=== PATIENT | female | born 1970 | race Caucasian/White ===

== ENCOUNTER 2022-06-17 13:12 | Inpatient (IN) | payer OTHER, MEDICAID, SELFPAY ==
[2022-06-17 13:58] VITALS: BMI 36.0
[2022-06-17 14:21] LABS: MANUAL DIFF FLAG NO
[2022-06-17 14:23] LABS: Basophils Absolute Auto 0.1 X10*3/uL (0.0-0.2); Eosinophils Absolute Auto 0.3 X10*3/uL (0.0-0.4); Eosinophils Percent Auto 4.9 % (0-4); Hematocrit 44.1 % (37.0-47.0); Imm Gran Abs Auto 0.02 X10*3/uL (0.00-0.03); Imm Gran Pct Auto 0.3 % (0.0-0.4); Mean Corpuscular Hemoglobin 29.9 pg (27.0-33.0); Mean Corpuscular Volume 87.8 fL (80.0-98.0); Mean Platelet Volume 9.6 fL (9.4-12.3); Monocytes Absolute Auto 0.4 X10*3/uL (0.1-1.2); Monocytes Percent Auto 6.3 % (2-11); Neutrophils Percent Auto 58.5 % (45-73); Platelet Count 338 X10*3/uL (160-400); Red Blood Count 5.02 X10*6/uL (4.20-5.50); Red Cell Distribution Width 14.2 % (11.0-16.0); White Blood Count 6.9 X10*3/uL (4.8-10.8)
[2022-06-17 14:37] LABS: Ethanol < 10 mg/dL
[2022-06-17 14:38] LABS: Alanine Aminotransferase 17 U/L (0-31); Albumin Level 4.3 g/dL (3.5-5.0); Alkaline Phosphatase 108 U/L (39-117); Anion Gap 14 (12-20); Aspartate Amino Transferase 16 U/L (5-31); Bilirubin Total 0.4 mg/dL (0.0-1.0); Blood Urea Nitrogen 10 mg/dL (9-16); COVID-19 Test Negative (Negative); Calcium 9.9 mg/dL (8.4-10.2); Carbon Dioxide 23 mmol/L (22-29); Chloride 105 mmol/L (96-108); Estimated Glomerular Filt Rate 58; Glucose Random 97 mg/dL (60-115); IDNOW Serial# 6674DD1D; Potassium 3.9 mmol/L (3.3-5.1); Sodium 138 mmol/L (135-145); Total Protein 7.7 g/dL (6.5-8.0)
[2022-06-17 14:39] LABS: Appearance Urine Clear; Color Urine Yellow; Glucose Urine UA Negative (Negative); Leukocyte Esterase Urine Negative (Negative); Nitrite Urine Negative (Negative); PH 6.5 (5.0-9.0); Specific Gravity - Urine <= 1.005 (1.005-1.025); UPreg QC Valid YES; Urine Blood Negative (Negative); Urine Ketones Negative (Negative); Urine Pregnancy NEGATIVE (NEGATIVE); Urine Protein Negative (Neg-Trace)
[2022-06-17 14:44] LABS: Amphetamine Screen Urine Not Detected (Not Detect); Barbiturates, Urine Not Detected (Not Detect); Benzodiazepines Screen Urine Not Detected (Not Detect); Cannabinoid Screen Urine Not Detected (Not Detect); Cocaine Screen Urine Not Detected (Not Detect); Fentanyl, urine Not Detected (Not Detect); Opiate Screen Urine Not Detected (Not Detect); Phencyclidine Screen Urine Not Detected (Not Detect)
--- NOTE | 2022-06-17 15:05 | ED.PSYCH ---
HPI - Psych General Chief Complaint: Psychiatric Symptoms Stated Complaint: SI W/PLAN, -HI, SEC 12 Time Seen by Provider: 06/17/22 13:47 Source: patient Mode of arrival: ambulatory Limitations: no limitations History of Present Illness HPI Narrative: Patient is a 51-year-old female who presents to the emergency department. She is coming from [place] in [place], with reports of suicidal ideations and a plan to overdose on pills. She reports that she moved to this area from [place] in October of 2021. Her prescriber from [place] had given her fluoxetine 40 mg daily, lorazepam which she is advised take daily at bedtime, but typically used as needed. Three days ago, 06/14/2021 she had thoughts of overdosing on her medications, she had locked herself in her room, but was able to talk herself down from this. Today she presented outpatient seeking help. She reports increased depression over the past month but has been significantly worsening over the past 2 weeks. She is currently residing with her daughter. 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 But she does feel as though she needs assistance at this time. Related Data Allergies Allergy/AdvReac Type Severity Reaction Status Date / Time Unable to Assess Allergy Verified 06/17/22 14:01 Review of Systems Review of Systems: Constitutional : No Fever, No Chills ENT/Mouth : No Ear Pain, No Nasal Congestion, No sore throat Eyes: No Eye Pain, No Swelling, No Redness Cardiovascular : No Chest Pain, No SOB Respiratory : No Cough, No Sputum, No Dyspnea Gastrointestinal : No Nausea, No Vomiting, No Diarrhea, No Hematochezia, No Melena Genitourinary : No Dysuria, No Urinary Frequency, No Hematuria Musculoskeletal : No Myalgias Skin : No Skin Lesions, No rash Neuro : No Weakness, No Numbness, No Paresthesias, No Dizziness, No Headache Psych : positive Anxiety, positive Depression, positive SI/HI Yes all other systems are reviewed and are negative [facility] Social History Social History Alcohol intake: current Alcohol intake frequency: holidays/special occasions only Smoked in Last 30 Days: No Use of substances other than those prescribed or required for medical reasons: No Advance Directives: No Advance Directives Information Provided: Yes Physical Exam Vital Signs: Vital Signs: Last Vital Signs Temp 97.2 F 06/17/22 17:35 Pulse 84 01/27/23 17:35 Resp 16 06/17/22 17:35 BP 155/95 H 06/17/22 17:35 Pulse Ox 95 06/17/22 17:35 O2 Del Method 06/17/22 17:35 BMI result Body Mass Index 36.0 Appearance: Alert.?Oriented to person, place and time. No acute distress.?Normal affect. Eyes: Pupils equal, round and reactive to light.? ENT: Pharynx normal.?? Neck: Normal inspection.? Neck supple.?? CVS: Heart sounds normal. Normal heart rate and rhythm.? Pulses normal.?? Respiratory: No respiratory distress.? Lung sounds clear to auscultation bilaterally?? Abdomen: Soft and non-tender. Normoactive bowel sounds. No pulsatile mass.?? Skin: Skin warm and dry.? Normal skin color.? Normal skin turgor.?? Extremities: No lower extremity edema.? No calf ttp? Neuro: Moves all extremities spontaneously. Sensation intact bilaterally. CN II-XII intact. No focal neuro deficits. Ambulates with normal steady gait. Course Reevaluation(s) Reevaluation #1: Patient responsive to lisinopril, repeat blood pressure 155/95 upon re-evaluation. EKG revealing normal sinus rhythm without any acute ischemic findings, troponin 4.0, at this time do not suspect ACS. Patient placed in physician observation. The reason for observation being that she requires additional time for inpatient bed search to ensue. She is calm and cooperative. No apparent distress. Time: 18:28 Medications Administered Discontinued Medications Generic Name Dose Route Start Last Admin Trade Name Emily PRN Reason Stop Dose Admin Lisinopril 5 mg 06/17/22 15:53 06/17/22 16:14 Lisinopril 5 Mg Tablet PO 06/17/22 15:54 5 mg ONCE ONE Administration Protocol Medical Decision Making Medical Decision Making MDM Narrative: She is noted to be hypertensive 179/120, currently asymptomatic without dizziness, headache, vision changes, neck pain, chest pain, shortness of breath. States that she was previously prescribed an antihypertensive medication, has not taken this since December of 2021, does not recall the name of what she was taking previously. Patient with asymptomatic hypertension, Will obtain CBC, CMP, troponin, EKG, drug of abuse screen, urinalysis. Will trial oral antihypertensive; lisinopril, for management at this time, and refer to care team. Admission/Observation Consideration of admission/observation: Escalation of care including admission/observation considered Lab Data MDM Lab Attestation statement: I reviewed the patient's lab results. 06/17/22 14:14 06/17/22 14:14 Labs: Lab Results 06/17/22 06/17/22 06/17/22 Range/Units 14:14 14:14 14:14 WBC 6.9 (4.8-10.8) X10*3/uL RBC 5.02 (4.20-5.50) X10*6/uL Hgb 15.0 (12.0-16.0) g/dl Hct 44.1 (37.0-47.0) % MCV 87.8 (80.0-98.0) fL MCH 29.9 (27.0-33.0) pg MCHC 34.0 (31.0-35.0) g/dl RDW 14.2 (11.0-16.0) % Plt Count 338 (160-400) X10*3/uL MPV 9.6 (9.4-12.3) fL Immature Gran % (Auto) 0.3 (0.0-0.4) % Neut % (Auto) 58.5 (45-73) % Lymph % (Auto) 29.0 (20-40) % [place] % (Auto) 6.3 (2-11) % Eos % (Auto) 4.9 H (0-4) % Baso % (Auto) 1.0 (0-2) % Lymph # (Auto) 2.0 (1.2-4.9) X10*3/uL [place] # (Auto) 0.4 (0.1-1.2) X10*3/uL Eos # (Auto) 0.3 (0.0-0.4) X10*3/uL Baso # (Auto) 0.1 (0.0-0.2) X10*3/uL Abs Immat Gran (auto) 0.02 (0.00-0.03) X10*3/uL Absolute Neuts (auto) 4.0 (2.0-8.3) x10*3/uL Absolute Nucleated RBC 0.000 (0.0-0.012) X10*3/uL Nucleated RBC % (auto) 0.0 (0.0-0.2) /100WBC Sodium 138 (135-145) mmol/L Potassium 3.9 (3.3-5.1) mmol/L Chloride 105 (96-108) mmol/L Carbon Dioxide 23 (22-29) mmol/L Anion Gap 14 (12-20) BUN 10 (9-16) mg/dL Creatinine 1.01 (0.5-1.4) mg/dL Estim Creat Clear Calc 70.0 Estimated GFR 58 Random Glucose 97 (60-115) mg/dL Calcium 9.9 (8.4-10.2) mg/dL Total Bilirubin 0.4 (0.0-1.0) mg/dL AST 16 (5-31) U/L ALT 17 (0-31) U/L Alkaline Phosphatase 108 (39-117) U/L Troponin I High Sens (<3.5-17.0) ng/L Total Protein 7.7 (6.5-8.0) g/dL Albumin 4.3 (3.5-5.0) g/dL Urine Color Urine Appearance Urine pH (5.0-9.0) Ur Specific [place] (1.005-1.025) Urine Protein (Neg-Trace) mg/dL Urine Glucose (UA) (Negative) mg/dL Urine Ketones (Negative) mg/dL Urine Blood (Negative) Urine Nitrite (Negative) Ur Leukocyte Esterase (Negative) Urine Test (NEGATIVE) Urine Opiates Screen (Not Detect) Urine Fentanyl Screen (Not Detect) Ur Barbiturates Screen (Not Detect) Ur Phencyclidine Scrn (Not Detect) Ur Amphetamines Screen (Not Detect) U Benzodiazepines Scrn (Not Detect) Urine Cocaine Screen (Not Detect) U Marijuana (THC) Screen (Not Detect) Ethyl Alcohol mg/dL COVID-19 (JESSICA) Negative (Negative) COVID-19 Clin Com See Note 06/17/22 06/17/22 06/17/22 Range/Units 14:14 14:27 14:27 WBC (4.8-10.8) X10*3/uL RBC (4.20-5.50) X10*6/uL Hgb (12.0-16.0) g/dl Hct (37.0-47.0) % MCV (80.0-98.0) fL MCH (27.0-33.0) pg MCHC (31.0-35.0) g/dl RDW (11.0-16.0) % Plt Count (160-400) X10*3/uL MPV (9.4-12.3) fL Immature Gran % (Auto) (0.0-0.4) % Neut % (Auto) (45-73) % Lymph % (Auto) (20-40) % [place] % (Auto) (2-11) % Eos % (Auto) (0-4) % Baso % (Auto) (0-2) % Lymph # (Auto) (1.2-4.9) X10*3/uL [place] # (Auto) (0.1-1.2) X10*3/uL Eos # (Auto) (0.0-0.4) X10*3/uL Baso # (Auto) (0.0-0.2) X10*3/uL Abs Immat Gran (auto) (0.00-0.03) X10*3/uL Absolute Neuts (auto) (2.0-8.3) x10*3/uL Absolute Nucleated RBC (0.0-0.012) X10*3/uL Nucleated RBC % (auto) (0.0-0.2) /100WBC Sodium (135-145) mmol/L Potassium (3.3-5.1) mmol/L Chloride (96-108) mmol/L Carbon Dioxide (22-29) mmol/L Anion Gap (12-20) BUN (9-16) mg/dL Creatinine (0.5-1.4) mg/dL Estim Creat Clear Calc Estimated GFR Random Glucose (60-115) mg/dL Calcium (8.4-10.2) mg/dL Total Bilirubin (0.0-1.0) mg/dL AST (5-31) U/L ALT (0-31) U/L Alkaline Phosphatase (39-117) U/L Troponin I High Sens (<3.5-17.0) ng/L Total Protein (6.5-8.0) g/dL Albumin (3.5-5.0) g/dL Urine Color Yellow Urine Appearance Clear Urine pH 6.5 (5.0-9.0) Ur Specific [place] <= 1.005 (1.005-1.025) Urine Protein Negative (Neg-Trace) mg/dL Urine Glucose (UA) Negative (Negative) mg/dL Urine Ketones Negative (Negative) mg/dL Urine Blood Negative (Negative) Urine Nitrite Negative (Negative) Ur Leukocyte Esterase Negative (Negative) Urine Test NEGATIVE (NEGATIVE) Urine Opiates Screen (Not Detect) Urine Fentanyl Screen (Not Detect) Ur Barbiturates Screen (Not Detect) Ur Phencyclidine Scrn (Not Detect) Ur Amphetamines Screen (Not Detect) U Benzodiazepines Scrn (Not Detect) Urine Cocaine Screen (Not Detect) U Marijuana (THC) Screen (Not Detect) Ethyl Alcohol < 10 mg/dL COVID-19 (JESSICA) (Negative) COVID-19 Clin Com 06/17/22 06/17/22 Range/Units 14:27 15:56 WBC (4.8-10.8) X10*3/uL RBC (4.20-5.50) X10*6/uL Hgb (12.0-16.0) g/dl Hct (37.0-47.0) % MCV (80.0-98.0) fL MCH (27.0-33.0) pg MCHC (31.0-35.0) g/dl RDW (11.0-16.0) % Plt Count (160-400) X10*3/uL MPV (9.4-12.3) fL Immature Gran % (Auto) (0.0-0.4) % Neut % (Auto) (45-73) % Lymph % (Auto) (20-40) % [place] % (Auto) (2-11) % Eos % (Auto) (0-4) % Baso % (Auto) (0-2) % Lymph # (Auto) (1.2-4.9) X10*3/uL [place] # (Auto) (0.1-1.2) X10*3/uL Eos # (Auto) (0.0-0.4) X10*3/uL Baso # (Auto) (0.0-0.2) X10*3/uL Abs Immat Gran (auto) (0.00-0.03) X10*3/uL Absolute Neuts (auto) (2.0-8.3) x10*3/uL Absolute Nucleated RBC (0.0-0.012) X10*3/uL Nucleated RBC % (auto) (0.0-0.2) /100WBC Sodium (135-145) mmol/L Potassium (3.3-5.1) mmol/L Chloride (96-108) mmol/L Carbon Dioxide (22-29) mmol/L Anion Gap (12-20) BUN (9-16) mg/dL Creatinine (0.5-1.4) mg/dL Estim Creat Clear Calc Estimated GFR Random Glucose (60-115) mg/dL Calcium (8.4-10.2) mg/dL Total Bilirubin (0.0-1.0) mg/dL AST (5-31) U/L ALT (0-31) U/L Alkaline Phosphatase (39-117) U/L Troponin I High Sens 4.0 (<3.5-17.0) ng/L Total Protein (6.5-8.0) g/dL Albumin (3.5-5.0) g/dL Urine Color Urine Appearance Urine pH (5.0-9.0) Ur Specific [place] (1.005-1.025) Urine Protein (Neg-Trace) mg/dL Urine Glucose (UA) (Negative) mg/dL Urine Ketones (Negative) mg/dL Urine Blood (Negative) Urine Nitrite (Negative) Ur Leukocyte Esterase (Negative) Urine Test (NEGATIVE) Urine Opiates Screen Not Detected (Not Detect) Urine Fentanyl Screen Not Detected (Not Detect) Ur Barbiturates Screen Not Detected (Not Detect) Ur Phencyclidine Scrn Not Detected (Not Detect) Ur Amphetamines Screen Not Detected (Not Detect) U Benzodiazepines Scrn Not Detected (Not Detect) Urine Cocaine Screen Not Detected (Not Detect) U Marijuana (THC) Screen Not Detected (Not Detect) Ethyl Alcohol mg/dL COVID-19 (JESSICA) (Negative) COVID-19 Clin Com Independent Interpretation I performed an independent interpretation of an: EKG Interpretation: Rate: Normal sinus rhythm Rhythm:? [address] [place]:? Normal Normal P waves.? Normal LAURA.?? Normal QRS complex.?? ST T wave :??No ST elevation, no ST depression, no T-wave inversion qTC: 476 prior studies:? None prior available for review The study has been interpreted contemporaneously by me. Chronic Conditions Patient?s care impacted by: Hypertension Discharge Plan Discharge Clinical Impression: Suicidal ideation, Essential hypertension Patient Disposition: Still a Patient Interventions: [place]-Suicide Risk Severity Scale Last Done: 06/17/22 14:07
[2022-06-17 15:13] VITALS: BP 179/120; PULSE 89; RESP 15; TEMP 36.3; O2SAT 95
--- NOTE | 2022-06-17 15:19 | ECG_ITS ---
Test Reason : HTN Blood Pressure : / mmHG Vent. Rate : 078 BPM Atrial Rate : 078 BPM P-R Int : 164 ms QRS Dur : 082 ms QT Int : 418 ms P-R-T Axes : 060 045 074 degrees QTc Int : 476 ms Normal sinus rhythm Normal ECG No previous ECGs available Referred By: Allison Azul Electronically Signed By:RHONDA VO
[2022-06-17] MEDS: lisinopriL 5 MG TABLET PO (16:14)
[2022-06-17 17:35] VITALS: BP 155/95; PULSE 84; RESP 16; TEMP 36.2; O2SAT 95
[2022-06-17 22:35] VITALS: BP 139/94; PULSE 88; RESP 18; TEMP 36.6; O2SAT 96
[2022-06-17] MEDS: Propranolol HCL 40 MG TABLET PO (23:08)
[2022-06-17] MEDS: SUMAtriptan succinate 50 MG TABLET PO (23:08)
[2022-06-17] MEDS: LORazepam 1 MG TABLET PO (23:09)
[2022-06-18 00:15] VITALS: BP 174/103; PULSE 80; RESP 16; TEMP 36.3; O2SAT 94
[2022-06-18 01:00] VITALS: BP 170/104; PULSE 74; RESP 16; O2SAT 94
[2022-06-18] MEDS: Acetaminophen 325 MG TABLET 650 MG PO ×2 (01:07→11:18)
[2022-06-18] MEDS: traZODone HCL 50 MG TABLET PO ×2 (01:33→22:55)
[2022-06-18] MEDS: Magnesium Hydrox/Alum Hydrox 30 ML ORAL.SUSP PO ×2 (01:33→20:41)
--- NOTE | 2022-06-18 03:03 | PC.ADMIT ---
Pt is a 51 year old cisgender Austrian speaking female who presented to [facility] secondary to being assessed in the community by [facility] secondary to increased SI with plan, means and intent. Pt reported that on 06/14/22 she barricaded herself in the bathroom and planned to end her life via intentional OD on prescription medications. Pt reported that she has been experiencing command auditory hallucinations to harm herself and visual hallucinations of the devil?s face. Pt moved from [place] to [place] in October of 2021 to be closer to her family supports. Pt reported feeling paranoid about people that are out to get her though the people in question do not know her and she does not know them.?On arrival to unit patient reports anxiety 5/10 with depression 5/10. Patient continues to endorse SI, but has no plan in place on the unit. Patient continues to intermittently see the devil and hear statements that she should harm herself. Patient was pleasant and cooperative with admission process. Covid Negative. UTOX negative
[2022-06-18 07:38] LABS: Alanine Aminotransferase 18 U/L (0-31); Albumin Level 3.9 g/dL (3.5-5.0); Alkaline Phosphatase 102 U/L (39-117); Anion Gap 13 (12-20); Aspartate Amino Transferase 16 U/L (5-31); Bilirubin Total 0.6 mg/dL (0.0-1.0); Blood Urea Nitrogen 10 mg/dL (9-16); Calcium 9.8 mg/dL (8.4-10.2); Carbon Dioxide 24 mmol/L (22-29); Chloride 107 mmol/L (96-108); Cholesterol 260 mg/dL; Creatinine Clr Calc Pharmacy 65.5; Estimated Glomerular Filt Rate 54; Glucose Fasting 98 mg/dL (60-99); HDL Cholesterol 44 mg/dL; LDL Cholesterol Calculated 198 mg/dl; Sodium 140 mmol/L (135-145); Triglycerides 90 mg/dL
[2022-06-18 08:35] VITALS: BP 136/80; PULSE 68; RESP 18; TEMP 36.6; O2SAT 96
[2022-06-18] MEDS: Atorvastatin Calcium 10 MG TABLET PO (08:49)
[2022-06-18] MEDS: FLUoxetine HCl 20 MG CAPSULE 40 MG PO (08:49)
[2022-06-18] MEDS: Propranolol HCL 40 MG TABLET PO ×2 (08:49→20:40)
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
[2022-06-18] MEDS: ARIPiprazole 2 MG TABLET PO (14:53)
[2022-06-18] MEDS: LORazepam 1 MG TABLET PO (14:53)
[2022-06-18 16:06] LABS: TSH reflex Free T4 1.54 uIU/mL (0.32-4.0)
[2022-06-18 16:20] LABS: Folate 10.1 ng/mL (> or = 4.0); Vitamin B12 256 pg/mL (200-900)
[2022-06-18 20:40] VITALS: BP 136/77; PULSE 68; RESP 16; TEMP 36.5; O2SAT 94
[2022-06-18] MEDS: Cyclobenzaprine HCl 10 MG TABLET PO (20:40)
[2022-06-18] MEDS: traMADoL HCL 50 MG TABLET PO (20:41)
[2022-06-19 08:54] VITALS: BP 112/73; PULSE 71; RESP 18; TEMP 36.6; O2SAT 94
[2022-06-19] MEDS: LORazepam 1 MG TABLET PO ×2 (08:56→15:51)
[2022-06-19] MEDS: Atorvastatin Calcium 10 MG TABLET PO (08:56)
[2022-06-19] MEDS: ARIPiprazole 5 MG TABLET PO (08:56)
[2022-06-19] MEDS: Propranolol HCL 40 MG TABLET PO ×2 (08:56→22:53)
[2022-06-19] MEDS: FLUoxetine HCl 20 MG CAPSULE 40 MG PO (08:56)
[2022-06-19] MEDS: Acetaminophen 325 MG TABLET 650 MG PO (08:56)
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
[2022-06-19] MEDS: Topiramate 25 MG TABLET PO ×2 (12:17→22:49)
[2022-06-19] MEDS: Celecoxib 100 MG CAPSULE PO ×2 (13:59→22:53)
[2022-06-19] MEDS: traMADoL HCL 50 MG TABLET PO (15:51)
[2022-06-19 18:00] VITALS: BP 117/62; PULSE 77; RESP 16; TEMP 36.4; O2SAT 93
[2022-06-20] MEDS: traMADoL HCL 50 MG TABLET PO ×2 (01:45→20:27)
[2022-06-20] MEDS: Celecoxib 100 MG CAPSULE PO ×2 (09:52→20:27)
[2022-06-20] MEDS: Topiramate 25 MG TABLET 50 MG PO ×2 (09:53→20:27)
[2022-06-20] MEDS: ARIPiprazole 5 MG TABLET PO (09:53)
[2022-06-20] MEDS: Atorvastatin Calcium 10 MG TABLET PO (09:53)
[2022-06-20] MEDS: Propranolol HCL 40 MG TABLET PO ×2 (09:53→20:27)
[2022-06-20] MEDS: FLUoxetine HCl 20 MG CAPSULE 40 MG PO (09:54)
[2022-06-20] MEDS: Acetaminophen 325 MG TABLET 650 MG PO (09:57)
[2022-06-20] MEDS: LORazepam 1 MG TABLET PO ×2 (09:59→20:27)
[2022-06-20 10:01] VITALS: BP 118/78; PULSE 73; RESP 18; TEMP 36.3; O2SAT 95
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
[2022-06-20] MEDS: Magnesium Hydrox/Alum Hydrox 30 ML ORAL.SUSP PO (15:29)
[2022-06-20 20:05] VITALS: BP 168/74; PULSE 84; RESP 16; TEMP 36.5; O2SAT 96
[2022-06-20] MEDS: Cyclobenzaprine HCl 10 MG TABLET PO (20:28)
[2022-06-20] MEDS: traZODone HCL 50 MG TABLET PO (20:30)
[2022-06-21] MEDS: FLUoxetine HCl 20 MG CAPSULE 40 MG PO (09:39)
[2022-06-21] MEDS: Topiramate 25 MG TABLET 50 MG PO ×2 (09:39→21:05)
[2022-06-21] MEDS: Cyclobenzaprine HCl 10 MG TABLET PO ×3 (09:40→21:06)
[2022-06-21] MEDS: traMADoL HCL 50 MG TABLET PO ×2 (09:40→21:06)
[2022-06-21] MEDS: Atorvastatin Calcium 10 MG TABLET PO (09:40)
[2022-06-21] MEDS: LORazepam 1 MG TABLET PO ×3 (09:40→21:06)
[2022-06-21] MEDS: Celecoxib 100 MG CAPSULE PO ×2 (09:40→21:05)
[2022-06-21] MEDS: Propranolol HCL 40 MG TABLET PO ×2 (09:40→21:05)
[2022-06-21] MEDS: ARIPiprazole 5 MG TABLET PO (09:40)
[2022-06-21 09:46] VITALS: BP 139/82; PULSE 70; RESP 18; TEMP 36.2; O2SAT 96
[2022-06-21] MEDS: Magnesium Hydrox/Alum Hydrox 30 ML ORAL.SUSP PO ×2 (10:34→20:02)
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
[2022-06-21] MEDS: Acetaminophen 325 MG TABLET 650 MG PO (14:55)
[2022-06-21 20:00] VITALS: BP 139/77; PULSE 88; RESP 18; TEMP 36.6; O2SAT 95
[2022-06-21] MEDS: traZODone HCL 50 MG TABLET PO (21:05)
[2022-06-22] MEDS: Propranolol HCL 40 MG TABLET PO ×2 (08:48→20:33)
[2022-06-22] MEDS: Celecoxib 100 MG CAPSULE PO ×2 (08:49→20:33)
[2022-06-22] MEDS: Topiramate 25 MG TABLET 50 MG PO ×2 (08:49→20:33)
[2022-06-22] MEDS: FLUoxetine HCl 20 MG CAPSULE 40 MG PO (08:49)
[2022-06-22] MEDS: LORazepam 1 MG TABLET PO (08:49)
[2022-06-22] MEDS: ARIPiprazole 5 MG TABLET PO (08:49)
[2022-06-22] MEDS: Atorvastatin Calcium 10 MG TABLET PO (08:49)
[2022-06-22 09:24] VITALS: BP 132/75; PULSE 73; RESP 16; TEMP 36.6; O2SAT 94
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
[2022-06-22] MEDS: Acetaminophen 325 MG TABLET 650 MG PO (13:40)
[2022-06-22] MEDS: Magnesium Hydrox/Alum Hydrox 30 ML ORAL.SUSP PO ×2 (14:41→20:38)
[2022-06-22 20:26] VITALS: BP 140/89; PULSE 81; TEMP 36.4; O2SAT 94
[2022-06-22] MEDS: traMADoL HCL 50 MG TABLET PO (20:31)
[2022-06-22] MEDS: Cyclobenzaprine HCl 10 MG TABLET PO (20:32)
[2022-06-22] MEDS: traZODone HCL 50 MG TABLET PO (20:33)
[2022-06-22] MEDS: Fluticasone Propionate Nasal 16 GM SPRAY 1 SPRAY NOSTRIL-B (21:29)
[2022-06-23] MEDS: traZODone HCL 50 MG TABLET PO ×2 (02:11→21:38)
[2022-06-23 07:00] VITALS: BMI 38.1
[2022-06-23] MEDS: Atorvastatin Calcium 10 MG TABLET PO (08:21)
[2022-06-23] MEDS: Topiramate 25 MG TABLET 50 MG PO ×2 (08:21→21:38)
[2022-06-23] MEDS: Propranolol HCL 40 MG TABLET PO ×2 (08:21→21:39)
[2022-06-23] MEDS: ARIPiprazole 5 MG TABLET PO (08:21)
[2022-06-23] MEDS: FLUoxetine HCl 20 MG CAPSULE 40 MG PO (08:21)
[2022-06-23] MEDS: Celecoxib 100 MG CAPSULE PO ×2 (08:21→21:38)
[2022-06-23] MEDS: Acetaminophen 325 MG TABLET 650 MG PO (09:37)
[2022-06-23] MEDS: LORazepam 1 MG TABLET PO (09:38)
[2022-06-23 09:54] VITALS: BP 126/63; PULSE 86; RESP 16; TEMP 36.3; O2SAT 95
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
[2022-06-23] MEDS: traMADoL HCL 50 MG TABLET PO ×2 (14:49→21:38)
[2022-06-23] MEDS: Fluticasone Propionate Nasal 16 GM SPRAY 1 SPRAY NOSTRIL-B (21:36)
[2022-06-23] MEDS: Magnesium Hydrox/Alum Hydrox 30 ML ORAL.SUSP PO (21:37)
[2022-06-23] MEDS: Cyclobenzaprine HCl 10 MG TABLET PO (21:39)
[2022-06-23 21:43] VITALS: BP 133/84; PULSE 79; TEMP 36.7; O2SAT 95
[2022-06-24 08:00] VITALS: BP 156/89; PULSE 74; TEMP 36.2; O2SAT 96
[2022-06-24] MEDS: traMADoL HCL 50 MG TABLET PO ×2 (09:32→21:48)
[2022-06-24] MEDS: Atorvastatin Calcium 10 MG TABLET PO (09:32)
[2022-06-24] MEDS: Propranolol HCL 40 MG TABLET PO ×2 (09:33→21:47)
[2022-06-24] MEDS: ARIPiprazole 5 MG TABLET PO (09:33)
[2022-06-24] MEDS: Cyclobenzaprine HCl 10 MG TABLET PO ×2 (09:33→21:47)
[2022-06-24] MEDS: Celecoxib 100 MG CAPSULE PO ×2 (09:33→21:47)
[2022-06-24] MEDS: FLUoxetine HCl 20 MG CAPSULE 40 MG PO (09:33)
[2022-06-24] MEDS: LORazepam 1 MG TABLET PO ×2 (09:33→21:47)
[2022-06-24] MEDS: Topiramate 25 MG TABLET 50 MG PO ×2 (09:34→21:47)
[2022-06-24] MEDS: Omeprazole 20 MG CAPSULE.DR PO (12:35)
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
[2022-06-24] MEDS: Albuterol Sulfate 90 MCG 8 GM INHALER 2 PUFF INHALE (17:16)
[2022-06-24 21:35] VITALS: BP 140/86; PULSE 81; RESP 16; TEMP 36.2; O2SAT 95
[2022-06-24] MEDS: traZODone HCL 50 MG TABLET PO (21:51)
[2022-06-25 06:00] VITALS: BP 138/82; PULSE 82; RESP 16; TEMP 36.6; O2SAT 99
[2022-06-25] MEDS: Omeprazole 20 MG CAPSULE.DR PO (08:52)
[2022-06-25] MEDS: Topiramate 25 MG TABLET 50 MG PO ×2 (08:52→21:40)
[2022-06-25] MEDS: FLUoxetine HCl 20 MG CAPSULE 40 MG PO (08:52)
[2022-06-25] MEDS: ARIPiprazole 5 MG TABLET PO (08:52)
[2022-06-25] MEDS: Propranolol HCL 40 MG TABLET PO ×2 (08:53→21:40)
[2022-06-25] MEDS: Atorvastatin Calcium 10 MG TABLET PO (08:53)
[2022-06-25] MEDS: Celecoxib 100 MG CAPSULE PO ×2 (08:53→21:40)
[2022-06-25] MEDS: LORazepam 1 MG TABLET PO ×2 (08:57→21:40)
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
[2022-06-25 17:05] LABS: Appearance Urine Clear; Color Urine Yellow; Glucose Urine UA Negative (Negative); Leukocyte Esterase Urine Negative (Negative); Nitrite Urine Negative (Negative); Urine Blood Negative (Negative); Urine Ketones Negative (Negative); Urine Protein Negative (Neg-Trace)
[2022-06-25 17:08] LABS: Bacteria Urine None Seen (None Seen); Hyaline Casts Urine 0-2 /LPF (0-2); RBC Urine 0-2 /HPF (0-2); Squamous Epithelial Cell Urine 0-2 /HPF (0-2); WBC Urine 0-5 /HPF (0-5)
[2022-06-25 21:30] VITALS: BP 148/96; PULSE 80; RESP 16; O2SAT 95
[2022-06-25] MEDS: traZODone HCL 50 MG TABLET PO (21:40)
[2022-06-25] MEDS: traMADoL HCL 50 MG TABLET PO (21:40)
[2022-06-25] MEDS: Cyclobenzaprine HCl 10 MG TABLET PO (21:40)
[2022-06-26] MEDS: traZODone HCL 50 MG TABLET PO ×2 (02:07→21:39)
[2022-06-26 06:00] VITALS: BP 162/86; PULSE 72; RESP 16; TEMP 36.6; O2SAT 98
[2022-06-26] MEDS: Propranolol HCL 40 MG TABLET PO ×2 (08:54→21:39)
[2022-06-26] MEDS: FLUoxetine HCl 20 MG CAPSULE 40 MG PO (08:54)
[2022-06-26] MEDS: Topiramate 25 MG TABLET 50 MG PO ×2 (08:54→21:39)
[2022-06-26] MEDS: Atorvastatin Calcium 10 MG TABLET PO (08:54)
[2022-06-26] MEDS: Celecoxib 100 MG CAPSULE PO ×2 (08:54→21:40)
[2022-06-26] MEDS: Omeprazole 20 MG CAPSULE.DR PO (08:54)
[2022-06-26] MEDS: LORazepam 1 MG TABLET PO ×2 (08:55→20:13)
[2022-06-26] MEDS: ARIPiprazole 5 MG TABLET PO (08:55)
[2022-06-26] MEDS: Albuterol Sulfate 90 MCG 8 GM INHALER 2 PUFF INHALE (13:16)
[2022-06-26] MEDS: Acetaminophen 325 MG TABLET 650 MG PO (13:16)
[2022-06-26] MEDS: Fluticasone Propionate Nasal 16 GM SPRAY 1 SPRAY NOSTRIL-B (13:16)
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
[2022-06-26 20:21] VITALS: BP 143/83; PULSE 82; RESP 16; TEMP 36.7; O2SAT 96
[2022-06-26] MEDS: Cyclobenzaprine HCl 10 MG TABLET PO (21:39)
[2022-06-26] MEDS: traMADoL HCL 50 MG TABLET PO (21:39)
[2022-06-27] MEDS: traZODone HCL 50 MG TABLET PO ×2 (01:57→21:31)
[2022-06-27 08:00] VITALS: BP 144/81; PULSE 76; TEMP 36.4; O2SAT 95
[2022-06-27] MEDS: Topiramate 25 MG TABLET 50 MG PO ×2 (08:40→21:31)
[2022-06-27] MEDS: Propranolol HCL 40 MG TABLET PO ×2 (08:41→21:31)
[2022-06-27] MEDS: Atorvastatin Calcium 10 MG TABLET PO (08:41)
[2022-06-27] MEDS: Celecoxib 100 MG CAPSULE PO ×2 (08:41→21:31)
[2022-06-27] MEDS: FLUoxetine HCl 20 MG CAPSULE 40 MG PO (08:42)
[2022-06-27] MEDS: ARIPiprazole 5 MG TABLET PO (08:42)
[2022-06-27] MEDS: Omeprazole 20 MG CAPSULE.DR PO (08:42)
[2022-06-27] MEDS: traMADoL HCL 50 MG TABLET PO ×2 (08:48→21:31)
[2022-06-27] MEDS: LORazepam 1 MG TABLET PO ×2 (08:48→20:46)
[2022-06-27] MEDS: Fluticasone Propionate Nasal 16 GM SPRAY 1 SPRAY NOSTRIL-B (12:06)
[2022-06-27] MEDS: Albuterol Sulfate 90 MCG 8 GM INHALER 2 PUFF INHALE (12:06)
[2022-06-27] MEDS: ARIPiprazole 2 MG TABLET PO (13:42)
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
[2022-06-27 20:15] VITALS: BP 155/85; PULSE 80; RESP 16; TEMP 36.4; O2SAT 97
[2022-06-27] MEDS: Cyclobenzaprine HCl 10 MG TABLET PO (21:31)
[2022-06-28 06:00] VITALS: BP 125/70; PULSE 72; RESP 18; TEMP 36.3; O2SAT 95
[2022-06-28] MEDS: Topiramate 25 MG TABLET 50 MG PO (09:12)
[2022-06-28] MEDS: Omeprazole 20 MG CAPSULE.DR PO (09:13)
[2022-06-28] MEDS: ARIPiprazole 2 MG TABLET PO (09:13)
[2022-06-28] MEDS: Atorvastatin Calcium 10 MG TABLET PO (09:13)
[2022-06-28] MEDS: FLUoxetine HCl 20 MG CAPSULE 40 MG PO (09:13)
[2022-06-28] MEDS: ARIPiprazole 5 MG TABLET PO (09:13)
[2022-06-28] MEDS: Celecoxib 100 MG CAPSULE PO (09:13)
[2022-06-28] MEDS: Propranolol HCL 40 MG TABLET PO (09:13)
[2022-06-28] MEDS: Cyclobenzaprine HCl 10 MG TABLET PO (09:48)
[2022-06-28] MEDS: LORazepam 1 MG TABLET PO (09:49)
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
--- NOTE | 2022-06-28 14:53 | PC.NURSE ---
Patient easily engaged. Reports mood is stable, depression and anxiety rated a 4. Denies SI/HI plan or intent. Denies thoughts to self harm. Denies perceptual disturbances, no overt psychosis or expressed delusions. States she is ready for discharge. Planning to go to [facility] apartment following discharge.. Discharge paperwork reviewed, reported understanding. Appointments reviewed with patient, reports understanding. All belongings taken with patient. Crisis numbers provided to client.
== END 2022-06-28 14:17 | disposition home or self-care (01) | DRG 751 ==
LOC: HO.ED 18:31 → HO.PADLT16 23:51
PROVIDERS: Nurse Practitioner Family; Psychiatry & Neurology Psychiatry; Admitting Provider Psychiatry & Neurology Psychiatry; Emergency Provider Student in an Organized Health Care Education/Training Program; Visit Provider Psychiatry & Neurology Psychiatry
DX: F33.1 Major depressive disorder, recurrent, moderate (principal); R45.851 Suicidal ideations; I10 Essential (primary) hypertension; Z20.822 Contact with and (suspected) exposure to COVID-19; Z23 Encounter for immunization; Z62.810 Personal history of physical and sexual abuse in childhood; Z79.51 Long term (current) use of inhaled steroids; Z88.0 Allergy status to penicillin; Z88.8 Allergy status to other drugs, medicaments and biological substances; Z79.899 Other long term (current) drug therapy
CPT/HCPCS: 36415; 80053; 80061; 80307; 81001; 81003; 81025; 82077; 82607; 82746; 84443; 84484; 85025; 87635; 90686; 93005; 99285

== ENCOUNTER 2025-03-12 11:50 | Outpatient (AMB) | payer MEDICAID, SELFPAY ==
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
== END 2025-03-12 12:36 | disposition home or self-care (01) ==
LOC: HO.HSM 11:51
PROVIDERS: Visit Provider Psychiatry & Neurology Neurology
DX: G20.A1 Parkinson's disease without dyskinesia, without mention of fluctuations (principal)
CPT/HCPCS: 99204

== ENCOUNTER → 2025-03-12 11:50 | Outpatient (BNVA) | payer OTHER, SELFPAY | PROVIDERS: Visit Provider Psychiatry & Neurology Neurology | DX: M54.2 Cervicalgia (principal); G20.C Parkinsonism, unspecified; F32.A Depression, unspecified | CPT/HCPCS: 99202 ==

== ENCOUNTER 2025-04-12 14:55 | Outpatient (REF) | payer MEDICAID, SELFPAY ==
--- NOTE | ~2025-04-12 | MR_ITS ---
CLINICAL HISTORY: G20 - Parkinsons disease MR Brain without gadolinium Comparison: None provided Findings: No restricted diffusion. No intra-axial mass or hemorrhage. No midline shift. No hydrocephalus. Vascular flow voids are intact. The orbits are normal. The sinuses and mastoid air cells are clear. No focal bone lesion. IMPRESSION: Normal brain MRI. This document has been electronically signed by: Jesu Fleming MD on 04/14/2025 12:36:51
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
--- OUTSIDE RECORDS SUMMARY | 2025-04-12 14:58 | XMS_ITS | Encounter Summary ---
Author Organization [employer] [facility] Address [address] [place] [address] [address] [address] Care Team Providers Care Environmental Engineer Name Role Phone Rena Rothman NP Primary Care Provider Unavailabl e Kali Mchugh Unavailable Unavailable Kali Mchugh Unavailable Unavailable Lolis Sidhu DO Primary Care Provider [phone] PcpSony Unassigned Primary Care Provider U navailable Reason for Visit * Reason Comments Med Change Request Encounter Details Date Type Department Care Team (Late st Contact Info) Description 01/30/2023 Refill [facility] MEDICAL [address] [place] [address] Rena Rothman NP Cervicalgia Social History Tobacco Use Types Packs/Day Years Used Date Smoking Tobacco: Never Smokeless Tobacco: Never Alcohol Use Standard Drinks/Week Comments Not Currently 0 (1 standard drink = 0.6 oz pur e alcohol) Comments Unknown Sex and Gender Information Value Date Recorded Sex Assigned at Female 11/29/2022 10:11 AM EDT Legal Sex Female 10:07 AM EDT Gender Identity Female 11/29/2022 10:11 AM EDT Sexual Orientation Straight 11/29/2022 10 :11 AM EDT documented as of this encounter Plan of Treatment Upcoming Encounters Date Type Department Care Team (Late st Contact Info) Description 05/23/2025 11:15 AM EST Office Visit [facility] MEDICAL [address] [place] [address] Marion Casanova DO [address] [place] [address] 01/28/2026 11:00 AM EDT Office Visit [facility] OPT[facility] [address] [place] [address] Juliana Carolee, OD [address] [place] [address] documented as of this encounter Visit Diagnoses Diagnosis Cervicalgia documented in this encounter Care Teams Environmental Engineer Relationship Specialty Start Date End Date Rena Rothman NP PCP - General Family Medicine 12/29/22 03/09/25 Lolis Sidhu DO [address] [place] [address] PCP - General Inhalation Therapist 03/10/25 03/16/25 Sony Jimenez Unassigned PCP - General Family Medicine 03/17/25 Kali Mchugh 03/31/23 03/31/23 Kali Mchugh Community Health Worker 03/31/23 Joselin Moser [address] [phone] Therapist Behavioral Health 02/13/25 Caitlyn Caceres [address] [place] [phone] Psychiatrist Psychiatry 02/13/25 documented as of this encounter
--- OUTSIDE RECORDS SUMMARY | 2025-04-12 14:58 | XMS_ITS | Encounter Summary ---
Author Organization [employer] Address [address] [place] [address] 7 [place] [address] Care Team Providers Care Plodding Machine Operator Name Role Phone Rena Rothman NP Primary Care Provider Kali [place] Unavailable Unavailable Lolis Sidhu DO Primary Care Provider [phone] PcpSony Unassigned Primary Care Provider U navailable Reason for Visit * Reason Onset Date Comments Paperwork/Forms 11/30/2024 Encounter Details Date Type Department Care Team (Late st Contact Info) Description 11/30/2024 Telephone [facility] MEDICAL [address] [place] [phone] Rena Rothman NP Paperwork/Forms Social History Tobacco Use Types Packs/Day Years Used Date Smoking Tobacco: Never Passive Smoke Exposure: Never Smokeless Tobacco: Never Alcohol Use Standard Drinks/Week Comments Never 0 (1 standard drink = 0.6 oz pur e alcohol) Alcohol Answer Date Recorded How often do you have a drink containing alcohol ? 0 08/12/2024 How many drinks containing a lcohol do you have on a typical day when you are drinking? 0 08/12/2024 How often do you have six or more drinks on one occasion? 0 08/12/2024 Depression Answer Date Recorded Patient Health Questionnaire-9 Score 0 04/19/2023 Patient Health Questionnaire-9 Score 0 04/19/2023 Last PHQ-9: Questionnaire Data Not on file 1 06/19/2022 Housing Stability Answer Date Recorded What is your housing situation today? I have malina ovalles 08/12/[address] you li ve. Do you have problems with any of the following? None of the above 08/12/2024 Food Insecurity Answer Date Recorded Within the past 12 months, y ou worried that your food would run out before you got money to buy more: Never True 08/12/2024 Within the past 12 months,th e food you bought just didn't last and you didn't have enough money to get more: Never True Transportation Answer Date Recorded In the past 12 months, has l ack of transportation kept you from medical appts, meetings, work or from getting things needed for daily living? No 08/12/2024 Intimate Partner Violence Answer Date R ecorded [...] shut off services in your home? No 08/12/2024 Depression Answer Date Recorded Patient Health Questionnaire-2 Score 0 08/12/2024 Internet Access Answer Date Recorded Internet Access Q1 Yes 08/12/2024 Internet Access Q2 Not on file 08/12/2024 Education Answer Date Recorded What is the highest level of school you have completed or the highest degree you have received? High school graduate 11/15/2023 Comments No Sex and Gender Information Value Date Recorded Sex Assigned at Female 11/29/2022 10:11 AM EDT Legal Sex Female 10:07 AM EDT Gender Identity Female 11/29/2022 10:11 AM EDT Sexual Orientation Straight 11/29/2022 10 :11 AM EDT Occupation Industry Job Start Date Job End Date Unemployeed Not on file Not on file Not on file documented as of this encounter Miscellaneous Notes * Telephone Encounter - Shameka Ferraro - 11/30/2024 11:17 AM EDT Paperwork from [facility] physical therapy for ordering provider Dr. Casanova to review and sign. Paperwork placed in Dr. Martinez bin. TE for tracking documented in this encounter Plan of Treatment Upcoming Encounters Date Type Department Care Team (Late st Contact Info) Description 05/23/2025 11:15 AM EST Office Visit [facility] MEDICAL [address] [place] [address] Marion Casanova DO [address] [place] [address] 01/28/2026 11:00 AM EDT Office Visit [facility] OPTOMETRY [address] [place] [address] Carolee Andrews OD [address] [place] [address] documented as of this encounter Visit Diagnoses Not on filedocumented in this encounter Additional Health Concerns Assessment Noted Time PHQ-9 Depression Total Score: 0 04/19/20 3:25 PM EST documented as of this encounter Care Teams Plodding Machine Operator Relationship Specialty Start Date End Date Rena Rothman NP PCP - General Family Medicine 12/29/22 03/09/25 Lolis Sidhu DO [address] [place] [address] PCP - General Industrial Twisting Machine Operator 03/10/25 03/16/25 Sony Jimenez Unassigned PCP - General Family Medicine 03/17/25 Kali Mchugh Community Health Worker 03/31/23 Joselin Moser [address] [facility] [address] [place] [address] [phone] Therapist Behavioral Health 02/13/25 Caitlyn Caceres [address] [place] [address] [phone] Psychiatrist Psychiatry 02/13/25 documented as of this encounter
--- OUTSIDE RECORDS SUMMARY | 2025-04-12 14:58 | XMS_ITS | Encounter Summary ---
Author Organization [employer] Address [address] [place] [address] 7 [place] [address] Care Team Providers Care Cottrell Blower Name Role Phone Rena Rothman NP Primary Care Provider Kali [place] Unavailable Unavailable Lolis Sidhu DO Primary Care Provider [phone] PcpSony Unassigned Primary Care Provider U navailable Reason for Visit * Reason Onset Date Comments Med Refill 06/30/2023 Encounter Details Date Type Department Care Team (Late st Contact Info) Description 06/30/2023 Refill Sony [facility] MEDICAL [address] [place] [phone] Rena Rothman NP Cervicalgia Social History Tobacco [...] * Telephone Encounter - PEDRO [place] - 07/03/2023 9:54 AM EST duplicate documented in this encounter Plan of Treatment Upcoming Encounters Date Type Department Care Team (Late st Contact Info) Description 05/23/2025 11:15 AM EST Office Visit [facility] MEDICAL [address] [place] [address] Marion Casanova DO [address] [place] [address] 01/28/2026 11:00 AM EDT Office Visit [place] [facility] OPTOMETRY [address] [place] [address] [employer] [address] [place] [address] documented as of this encounter Visit Diagnoses Diagnosis Cervicalgia documented in this encounter Additional Health Concerns Assessment Noted Time PHQ-9 Depression Total Score: 0 04/19/20 3:25 PM EST documented as of this encounter Care Teams Cottrell Blower Relationship Specialty Start Date End Date Rena Rothman NP PCP - General Family Medicine 12/29/22 03/09/25 Lolis Sidhu DO [address] [place] [address] PCP - General Seed Analyst 03/10/25 03/16/25 PcpSony Unassigned PCP - General Family Medicine 03/17/25 Kali Mchugh Community Health Worker 03/31/23 Joselin Moser 94 [facility] [address] [place] [address] Therapist Behavioral Health 02/13/25 Caitlyn Caceres [address] [place] [address] [phone] Psychiatrist Psychiatry 02/13/25 documented as of this encounter
--- OUTSIDE RECORDS SUMMARY | 2025-04-12 14:58 | XMS_ITS | Encounter Summary ---
Author Organization [employer] Address [address] [place] [address] 7t [place] [address] Care Team Providers Care Import Export Coordinator Name Role Phone Rena Rothman NP Primary Care Provider Kali [place] Unavailable Unavailable Lolis Sidhu DO Primary Care Provider [phone] PcpSony Unassigned Primary Care Provider U afshinailraúl Encounter Details Date Type Department Care Team (Late st Contact Info) Description 11/20/2023 Orders Only Sony [facility] MEDICAL [address] [place] [address] Hilary Diaz, PEDRO Cervicalgia Social History Tobacco Use Types Packs/Day [...] the past 12 months, has t he [employer], gas, oil or water [employer] threatened to shut off services in your home? No 03/22/2023 Depression Answer Date Recorded Patient Health Questionnaire-2 Score 0 04/19/2023 Education Answer Date Recorded What is the [...] on file documented as of this encounter Plan of Treatment Upcoming Encounters Date Type Department Care Team (Late st Contact Info) Description 05/23/2025 11:15 AM EST Office Visit Sony [facility] MEDICAL [address] [place] [address] Marion Casanova DO [address] [place] [address] 01/28/2026 11:00 AM EDT Office Visit [facility] OPTOMETRY [address] [place] [address] Carolee Andrews OD [address] [place] [address] documented as of this encounter Visit Diagnoses Diagnosis Cervicalgia documented in this encounter Additional Health Concerns Assessment Noted Time PHQ-9 Depression Total Score: 0 04/19/20 3:25 PM EST documented as of this encounter Care Teams Import Export Coordinator Relationship Specialty Start Date End Date Rena Rothman NP PCP - General Family Medicine 12/29/22 03/09/25 Lolis Sidhu DO [address] [place] [address] PCP - General Mill Machinist 03/10/25 03/16/25 Sony Jimenez Unassigned PCP - General Family Medicine 03/17/25 Kali Mchugh Community Health Worker 03/31/23 Joselin Moser [address] [phone] Therapist Behavioral Health 02/13/25 Caitlyn Caceres [address] [place] [phone] Psychiatrist Psychiatry 02/13/25 documented as of this encounter
--- OUTSIDE RECORDS SUMMARY | 2025-04-12 14:58 | XMS_ITS | Encounter Summary ---
Author Organization [employer] Address [address] [place] [address] 7 [place] [address] Care Team Providers Care Planer Setter Name Role Phone Rena Rothman NP Primary Care Provider Kali [place] Unavailable Unavailable Lolis Sidhu DO Primary Care Provider [phone] PcpSony Unassigned Primary Care Provider U navailable Reason for Visit * Reason Onset Date Comments Med Refill 12/02/2023 Encounter Details Date Type Department Care Team (Late st Contact Info) Description 12/02/2023 Refill Sony [facility] MEDICAL [address] [place] [phone] Jessica Sen FNP Acute vaginitis Social History Tobacco Use Types Packs/Day Years [...] encounter Miscellaneous Notes * Telephone Encounter - Cristy Stanton, RMA - 12/05/2023 1:54 PM EDT Spoke to pt she is aware. Pt was also asking about two other medications, I did let her know that they were sent in today. Pt is allset. documented in this encounter Plan of Treatment Upcoming Encounters Date Type Department Care Team (Late st Contact Info) Description 05/23/2025 11:15 AM EST Office Visit [facility] MEDICAL [address] [place] [address] Marion Casanova DO [address] [place] [address] 01/28/2026 11:00 AM EDT Office Visit [facility] OPTOMETRY [address] [place] [address] Carolee Andrews OD [address] [place] [address] documented as of this encounter Visit Diagnoses Diagnosis Acute vaginitis Unspecified vaginitis and vulvovaginitis documented in this encounter Additional Health Concerns Assessment Noted Time PHQ-9 Depression Total Score: 0 04/19/20 3:25 PM EST documented as of this encounter Care Teams Planer Setter Relationship Specialty Start Date End Date Rena Rothman NP PCP - General Family Medicine 12/29/22 03/09/25 Lolis Sidhu DO [address] [place] [address] PCP - General Livestock Breeder 03/10/25 03/16/25 Sony Jimenez Unassigned PCP - General Family Medicine 03/17/25 Kali Mchugh Community Health Worker 03/31/23 Joselin Moser [address] [facility] [address] [place] [address] Therapist Behavioral Health 02/13/25 Caitlyn Caceres [address] [place] [address] [phone] Psychiatrist Psychiatry 02/13/25 documented as of this encounter
--- OUTSIDE RECORDS SUMMARY | 2025-04-12 14:58 | XMS_ITS | Encounter Summary ---
Author Organization [employer] Address [address] [place] [address] 7 [place] [address] Care Team Providers Care Marine Underwriter Name Role Phone Rena Rothman NP Primary Care Provider Kali [place] Unavailable Unavailable Lolis Sidhu DO Primary Care Provider [phone] PcpSony Unassigned Primary Care Provider U navailable Reason for Visit * Reason Comments Med Refill Encounter Details Date Type Department Care Team (Late st Contact Info) Description 11/01/2023 Refill Sony [facility] MEDICAL [address] [place] [phone] Hilary Diaz FNP Migraine without aura and without status migrainosus, not intractable Social History Tobacco Use Types Packs/Day Years [...] Description 05/23/2025 11:15 AM EST Office Visit [facility] MEDICAL [address] [place] [address] Marion Casanova DO [address] [place] [address] 01/28/2026 11:00 AM EDT Office Visit [facility] OPTOMETRY [address] [place] [address] Carolee Andrews OD [address] [place] [address] documented as of this encounter Visit Diagnoses Diagnosis Migraine without aura and without status migrainosus, not intractable documented in this encounter Additional Health Concerns Assessment Noted Time PHQ-9 Depression Total Score: 0 04/19/20 3:25 PM EST documented as of this encounter Care Teams Marine Underwriter Relationship Specialty Start Date End Date Rena Rothman NP PCP - General Family Medicine 12/29/22 03/09/25 Lolis Sidhu DO [address] [place] [address] PCP - General Medical Information Specialist 03/10/25 03/16/25 Sony Jimenez Unassigned PCP - General Family Medicine 03/17/25 Kali Mchugh Community Health Worker 03/31/23 Joselin Moser [address] [phone] Therapist Behavioral Health 02/13/25 Caitlyn Caceres [address] [place] [phone] Psychiatrist Psychiatry 02/13/25 documented as of this encounter
--- OUTSIDE RECORDS SUMMARY | 2025-04-12 14:58 | XMS_ITS | Encounter Summary ---
Author Organization [employer] Address [address] [place] [address] 7 [place] [address] Care Team Providers Care African Studies Professor Name Role Phone Rena Rothman NP Primary Care Provider Kali [place] Unavailable Unavailable Lolis Sidhu DO Primary Care Provider [phone] PcpSony Unassigned Primary Care Provider U afshinailraúl Encounter Details Date Type Department Care Team (Late st Contact Info) Description 02/13/2025 Orders Only Sony [facility] [address] [place] [address] Rena Rothman NP Social History Tobacco Use Types Packs/Day Years [...] the past 12 months, has t he [employer], gas, oil or water [employer] threatened to shut off services in your [...] 05/23/2025 11:15 AM EST Office Visit Sony [facility] MEDICAL [address] [place] [address] Marion Casanova DO [address] [place] [address] 01/28/2026 11:00 AM EDT Office Visit Sony [facility] OPTOMETRY [address] [place] [address] Carolee Andrews OD [address] [place] [address] documented as of this encounter Procedures Procedure Name Priority Date/Time Associated Diagnosis Comments HM PAP/HPV Routine 03/22/2023 2:59 PM EDT documented in this encounter Results * HM PAP/HPV (03/22/2023 2:59 PM EDT) Rena Rothman NP HEALTH MAINTENANCE Final Result documented in this encounter Visit Diagnoses Not on filedocumented in this encounter Additional Health Concerns Assessment Noted Time PHQ-9 Depression Total Score: 0 04/19/20 3:25 PM EST documented as of this encounter Care Teams African Studies Professor Relationship Specialty Start Date End Date Rena Rothman NP PCP - General Family Medicine 12/29/22 03/09/25 Lolis Sidhu DO [address] [place] [address] PCP - General Hydroelectric Systems Technician 03/10/25 03/16/25 Sony Jimenez Unassigned PCP - General Family Medicine 03/17/25 Kali Mchugh Community Health Worker 03/31/23 Joselin Moser 94 [facility] [address] [place] [address] [phone] Therapist Behavioral Health 02/13/25 Caitlyn Caceres [address] [place] [address] Psychiatrist Psychiatry 02/13/25 documented as of this encounter
--- OUTSIDE RECORDS SUMMARY | 2025-04-12 14:58 | XMS_ITS | Encounter Summary ---
Author Organization [employer] Address [address] [place] [address] 7t [place] [address] Care Team Providers Care Research Instructor Name Role Phone Rena Rothman NP Primary Care Provider Kali [place] Unavailable Unavailable Lolis Sidhu DO Primary Care Provider [phone] PcpSony Unassigned Primary Care Provider U afshinailraúl Encounter Details Date Type Department Care Team (Latest Contact Info) Description 02/13/2025 Results Follow-Up [facility] MEDICAL [address] [place] [phone] Vickie Restrepo, RONNIE [address] [place] [address] BI Mammogram Screening Bilateral Social History Tobacco Use Types Packs/Day Years [...] Description 05/23/2025 11:15 AM EST Office Visit [facility] MEDICAL [address] [place] [address] Marion Casanova DO [address] [place] [address] 01/28/2026 11:00 AM EDT Office Visit [facility] OPTOMETRY [address] [place] [address] Carolee Andrews OD [address] [place] [address] documented as of this encounter Visit Diagnoses Not on filedocumented in this encounter Additional Health Concerns Assessment Noted Time PHQ-9 Depression Total Score: 0 04/19/20 3:25 PM EST documented as of this encounter Care Teams Research Instructor Relationship Specialty Start Date End Date Rena Rothman NP PCP - General Family Medicine 12/29/22 03/09/25 Lolis Sidhu DO [address] [place] [address] PCP - General Street Vendor 03/10/25 03/16/25 PcpSony Unassigned PCP - General Family Medicine 03/17/25 Kali Mchugh Community Health Worker 03/31/23 Joselin Moser [address] [address] Therapist Behavioral Health 02/13/25 Caitlyn Caceres [address] [place] [address] [phone] Psychiatrist Psychiatry 02/13/25 documented as of this encounter
--- OUTSIDE RECORDS SUMMARY | 2025-04-12 14:59 | XMS_ITS | Encounter Summary ---
Author Organization [employer] Address [address] [place] [address] 7t [place] [address] Care Team Providers Care Electronic Funds Transfer Coordinator Name Role Phone Rena Rothman NP Primary Care Provider Kali [place] Unavailable Unavailable Lolis Sidhu DO Primary Care Provider [phone] PcpSony Unassigned Primary Care Provider U afshinailraúl Encounter Details Date Type Department Care Team (Late st Contact Info) Description 08/30/2024 Orders Only Sony [facility] [address] [place] [address] Rena Rothman NP Social History Tobacco Use [...] the past 12 months, has t he [employer], gas, oil or water [employer] threatened to shut off services in your [...] 05/23/2025 11:15 AM EST Office Visit [facility] MEDICAL [address] [place] [address] Marion Casanova DO [address] [place] [address] 01/28/2026 11:00 AM EDT Office Visit [facility] OPTOMETRY [address] [place] [address] Carolee Andrews OD [address] [place] [address] documented as of this encounter Procedures Procedure Name Priority Date/Time Associated Diagnosis Comments MRI CERVICAL SPINE WO CONTRAST Routine 08/25/2024 11:17 AM EDT documented in this encounter Results * MRI CERVICAL SPINE WO CONTRAST (08/25/2024 11:17 AM EDT) Anatomical Region Laterality Modality Magnetic Resonan ce Rena Rothman NP IMG MRI PROCEDURES Final Result documented in this encounter Visit Diagnoses Not on filedocumented in this encounter Additional Health Concerns Assessment Noted Time PHQ-9 Depression Total Score: 0 04/19/20 3:25 PM EST documented as of this encounter Care Teams Electronic Funds Transfer Coordinator Relationship Specialty Start Date End Date Rena Rothman NP PCP - General Family Medicine 12/29/22 03/09/25 Lolis Sidhu DO [address] [place] [address] PCP - General Can Solderer 03/10/25 03/16/25 Sony Jimenez Unassigned PCP - General Family Medicine 03/17/25 Kali Mchugh Community Health Worker 03/31/23 Joselin Moser 94 [facility] [address] [place] [address] [phone] Therapist Behavioral Health 02/13/25 Caitlyn Caceres [address] [place] [phone] Psychiatrist Psychiatry 02/13/25 documented as of this encounter
--- OUTSIDE RECORDS SUMMARY | 2025-04-12 14:59 | XMS_ITS | Encounter Summary ---
Author Organization [employer] Address [address] [place] [address] 7 [place] [address] Care Team Providers Care Psychology Clinician Name Role Phone Rena Rothman NP Primary Care Provider Kali [place] Unavailable Unavailable Lolis Sidhu DO Primary Care Provider [phone] PcpSony Unassigned Primary Care Provider U navailable Reason for Visit * Reason Comments Med Refill Encounter Details Date Type Department Care Team (Late st Contact Info) Description 08/08/[address] [facility] MEDICAL [address] [place] [address] Hilary Diaz, ADVICE LINE RN Cervicalgia Social History Tobacco Use Types Packs/Day [...] Description 05/23/2025 11:15 AM EST Office Visit [facility] MEDICAL [address] [place] [address] Marion Casanova DO [address] [place] [address] 01/28/2026 11:00 AM EDT Office Visit [facility] OPTOMETRY [address] [place] [address] Carolee Andrews OD [address] [place] [address] documented as of this encounter Visit Diagnoses Diagnosis Cervicalgia documented in this encounter Additional Health Concerns Assessment Noted Time PHQ-9 Depression Total Score: 0 04/19/20 3:25 PM EST documented as of this encounter Care Teams Psychology Clinician Relationship Specialty Start Date End Date Rena Rothman NP PCP - General Family Medicine 12/29/22 03/09/25 Lolis Sidhu DO [address] [place] [address] PCP - General Escrow Representative 03/10/25 03/16/25 Sony Jimenez Unassigned PCP - General Family Medicine 03/17/25 Kali Mchugh Community Health Worker 03/31/23 Joselin Moser [address] [phone] Therapist Behavioral Health 02/13/25 Caitlyn Caceres [address] [place] [address] Psychiatrist Psychiatry 02/13/25 documented as of this encounter
--- OUTSIDE RECORDS SUMMARY | 2025-04-12 14:59 | XMS_ITS | Encounter Summary ---
Author Organization [employer] Address [address] [place] [address] 7t [place] [address] Care Team Providers Care Vertical Boring Mill Operator Name Role Phone Rena Rothman NP Primary Care Provider Kali [place] Unavailable Unavailable Lolis Sidhu DO Primary Care Provider [phone] PcpSony Unassigned Primary Care Provider U navailable Reason for Visit * Reason Onset Date Comments Med Refill 10/27/2024 Encounter Details Date Type Department Care Team (Late st Contact Info) Description 10/27/2024 Refill Sony [facility] MEDICAL [address] [place] [address] [facility] [address] [place] [address] Migraine without aura and without status migrainosus, [...] your housing situation today? I have malina sing 08/12/[address] you li [...] encounter Miscellaneous Notes * Telephone Encounter - Susana [place] MD - 10/28/2024 3:24 PM EDT Approving, but needs appt for additional refills. documented in this encounter Plan of Treatment Upcoming Encounters Date Type Department Care Team (Late st Contact Info) Description 05/23/2025 11:15 AM EST Office Visit [facility] MEDICAL [address] [place] [address] Marion Casanova DO [address] [place] [address] 01/28/2026 11:00 AM EDT Office Visit [facility] OPTOMETRY [address] [place] [address] Carolee Andrews OD [address] [place] [address] documented as of this encounter Visit Diagnoses Diagnosis Migraine without aura and without status migrainosus, not intractable documented in this encounter Additional Health Concerns Assessment Noted Time PHQ-9 Depression Total Score: 0 04/19/20 3:25 PM EST documented as of this encounter Care Teams Vertical Boring Mill Operator Relationship Specialty Start Date End Date Rena Rothman NP PCP - General Family Medicine 12/29/22 03/09/25 Lolis Sidhu DO [address] [place] [address] PCP - General Show Host 03/10/25 03/16/25 Sony Jimenez Unassigned PCP - General Family Medicine 03/17/25 Kali Mchugh Community Health Worker 03/31/23 Joselin Moser [address] [facility] [address] [place] [address] Therapist Behavioral Health 02/13/25 Caitlyn Caceres [address] [place] [phone] Psychiatrist Psychiatry 02/13/25 documented as of this encounter
--- OUTSIDE RECORDS SUMMARY | 2025-04-12 14:59 | XMS_ITS | Encounter Summary ---
Author Organization [employer] Address [address] [place] [address] 7t [place] [address] Care Team Providers Care Survey Research Center Director Name Role Phone Rena Rothman NP Primary Care Provider Kali Buchanan Unavailable Unavailable Lolis Sidhu DO Primary Care Provider [phone] Sony Jimenez Unassigned Primary Care Provider U navailable Reason for Visit * Reason Comments Med Change Request Encounter Details Date Type Department Care Team (Late st Contact Info) Description 05/13/2024 Refill Sony [facility] [address] [place] [address] [place], [place], [facility] [address] [place] [address] Cervicalgia Social History Tobacco Use Types Packs/Day [...] Answer Date Recorded Patient Health Questionnaire-2 Score 2 02/12/2024 Education Answer Date Recorded What is the [...] encounter Miscellaneous Notes * Telephone Encounter - Rosy Mcleod [place] - 05/13/2024 11:56 AM EST Last ordered: Today (05/13/2024) by PEDRO Bello documented in this encounter Plan of Treatment Upcoming Encounters Date Type Department Care Team (Late st Contact Info) Description 05/23/2025 11:15 AM EST Office Visit [facility] [address] [place] [address] Marion Casanova DO 73 [place] [address] 01/28/2026 11:00 AM EDT Office Visit [facility] [address] [place] [address] Carolee Andrews OD 73 [place] [address] documented as of this encounter Visit Diagnoses Diagnosis Cervicalgia documented in this encounter Additional Health Concerns Assessment Noted Time PHQ-9 Depression Total Score: 0 04/19/20 3:25 PM EST documented as of this encounter Care Teams Survey Research Center Director Relationship Specialty Start Date End Date Rena Rothman NP PCP - General Family Medicine 12/29/22 03/09/25 Lolis Sidhu DO 73 [place] [address] PCP - General Manager Of Program 03/10/25 03/16/25 Sony Jimenez Unassigned PCP - General Family Medicine 03/17/25 Kali Mchugh Community Health Worker 03/31/23 Joselin Moser [address] [facility] [address] [place] [address] Therapist Behavioral Health 02/13/25 Caitlyn Caceres [address] [place] [phone] Psychiatrist Psychiatry 02/13/25 documented as of this encounter
--- OUTSIDE RECORDS SUMMARY | 2025-04-12 14:59 | XMS_ITS | Encounter Summary ---
Author Organization [employer] Address [address] [place] [address] 7 [place] [address] Care Team Providers Care Machine Shorthand Reporter Name Role Phone Rena Rothman NP Primary Care Provider Kali Buchanan Unavailable Unavailable Lolis Sidhu DO Primary Care Provider [phone] PcpSony Unassigned Primary Care Provider U navailable Reason for Visit * Reason Onset Date Comments Med Refill 11/07/2023 Encounter Details Date Type Department Care Team (Late st Contact Info) Description 11/07/2023 Refill Sony [facility] [address] [place] [address] Rena Rothman NP Cervicalgia Social History Tobacco [...] Description 05/23/2025 11:15 AM EST Office Visit [facility] MED[facility] 73 [place] [address] Marion Casanova DO [address] [place] [address] 01/28/2026 11:00 AM EDT Office Visit [facility] OPTOMETRY 73 [place] [address] Carolee Andrews OD [address] [place] [address] documented as of this encounter Visit Diagnoses Diagnosis Cervicalgia documented in this encounter Additional Health Concerns Assessment Noted Time PHQ-9 Depression Total Score: 0 04/19/20 3:25 PM EST documented as of this encounter Care Teams Machine Shorthand Reporter Relationship Specialty Start Date End Date Rena Rothman NP PCP - General Family Medicine 12/29/22 03/09/25 Lolis Sidhu DO [address] [place] [address] PCP - General Front Attendant 03/10/25 03/16/25 Sony Jimenez Unassigned PCP - General Family Medicine 03/17/25 Kali Mchugh Community Health Worker 03/31/23 Joselin Moser [address] [facility] [address] [place] [address] [phone] Therapist Behavioral Health 02/13/25 Caitlyn Caceres [address] [place] [phone] Psychiatrist Psychiatry 02/13/25 documented as of this encounter
--- OUTSIDE RECORDS SUMMARY | 2025-04-12 14:59 | XMS_ITS | Encounter Summary ---
Author Organization [employer] Address [address] [place] [address] 7 [place] [address] Care Team Providers Care Pc Technician Name Role Phone Rena Rothman NP Primary Care Provider Kali Buchanan Unavailable Unavailable Lolis Sidhu DO Primary Care Provider [phone] PcpSony Unassigned Primary Care Provider U afshinailraúl Encounter Details Date Type Department Care Team (Late st Contact Info) Description 04/24/2024 Orders Only Sony [facility] [address] [place] [address] Carlie Valle CMA Social History Tobacco Use Types Packs/Day Years [...] the past 12 months, has t he [employer], gas, oil or water [employer] threatened to shut off services in your [...] 05/23/2025 11:15 AM EST Office Visit Sony [facility] 73 [place] [address] Marion Casanova DO [address] [place] [address] 01/28/2026 11:00 AM EDT Office Visit [facility] OPT[facility] [address] [place] [address] Carolee Andrews OD [address] [place] [address] documented as of this encounter Visit Diagnoses Not on filedocumented in this encounter Additional Health Concerns Assessment Noted Time PHQ-9 Depression Total Score: 0 04/19/20 3:25 PM EST documented as of this encounter Care Teams Pc Technician Relationship Specialty Start Date End Date Rena Rothman NP PCP - General Family Medicine 12/29/22 03/09/25 Lolis Sidhu DO 73 [place] [address] PCP - General Director Of Marketing 03/10/25 03/16/25 PcpSony Unassigned PCP - General Family Medicine 03/17/25 Kali Mchugh Community Health Worker 03/31/23 Joselin Moser [address] [phone] Therapist Behavioral Health 02/13/25 Caitlyn Caceres [address] [place] [address] [phone] Psychiatrist Psychiatry 02/13/25 documented as of this encounter
--- OUTSIDE RECORDS SUMMARY | 2025-04-12 14:59 | XMS_ITS | Encounter Summary ---
Author Organization [employer] Address [address] [place] [address] 7t [place] [address] Care Team Providers Care Parts Washer Name Role Phone Rena Rothman NP Primary Care Provider Kali Buchanan Unavailable Unavailable Lolis Sidhu DO Primary Care Provider [phone] PcpSony Unassigned Primary Care Provider U navailable Reason for Visit * Reason Comments Med Refill Encounter Details Date Type Department Care Team (Late st Contact Info) Description 10/27/2024 Refill Sony [facility] 73 [place] [address] Marion Casanova DO 73 [place] [address] Cervicalgia Social History Tobacco Use Types Packs/Day [...] Office Visit [facility] MEDICAL 73 [place] [address] Marion Casanova DO 73 [place] [address] 01/28/2026 11:00 AM EDT Office Visit [facility] OPTOMETRY 73 [place] [address] Carolee Andrews OD 73 [place] [address] documented as of this encounter Visit Diagnoses Diagnosis Cervicalgia documented in this encounter Additional Health Concerns Assessment Noted Time PHQ-9 Depression Total Score: 0 04/19/20 3:25 PM EST documented as of this encounter Care Teams Parts Washer Relationship Specialty Start Date End Date Rena Rothman NP PCP - General Family Medicine 12/29/22 03/09/25 Lolis Sidhu DO 73 [place] [address] PCP - General Dice Dealer 03/10/25 03/16/25 Sony Jimenez Unassigned PCP - General Family Medicine 03/17/25 Kali Mchugh Community Health Worker 03/31/23 [address] [facility] [address] [place] [address] Therapist Behavioral Health 02/13/25 Caitlyn Caceres [address] [place] [address] [phone] Psychiatrist Psychiatry 02/13/25 documented as of this encounter
--- OUTSIDE RECORDS SUMMARY | 2025-04-12 14:59 | XMS_ITS | Encounter Summary ---
Author Organization [employer] Address [address] [place] [address] 7t [place] [address] Care Team Providers Care Toppiece Chopper Name Role Phone Rena Rothman NP Primary Care Provider Kali Buchanan Unavailable Unavailable Lolis Sidhu DO Primary Care Provider [phone] PcpSony Unassigned Primary Care Provider U navailable Reason for Visit * Reason Onset Date Comments Med Refill 05/02/2023 Encounter Details Date Type Department Care Team (Late st Contact Info) Description 05/02/2023 Refill Sony [facility] [address] [place] [address] Kathy Hinson MD [address] [place] [address] Cervicalgia Social History Tobacco Use Types Packs/Day [...] Patient Health Questionnaire-2 Score 0 04/19/2023 Comments Unknown Sex and Gender Information Value Date Recorded Sex Assigned at Female 11/29/2022 10:11 AM EDT Legal Sex Female 10:07 AM EDT Gender Identity Female 11/29/2022 10:11 AM EDT Sexual Orientation Straight 11/29/2022 10 :11 AM EDT documented as of this encounter Miscellaneous Notes * Telephone Encounter - PEDRO Park - 05/03/2023 8:31 AM EST duplicate documented in this encounter Plan of Treatment Upcoming Encounters Date Type Department Care Team (Late st Contact Info) Description 05/23/2025 11:15 AM EST Office Visit [facility] MED[facility] [address] [place] [address] Marion Casanova DO 73 [place] [address] 01/28/2026 11:00 AM EDT Office Visit [facility] OPTOMETRY 73 [place] [address] Carolee Andrews OD 73 [place] [address] documented as of this encounter Visit Diagnoses Diagnosis Cervicalgia documented in this encounter Additional Health Concerns Assessment Noted Time PHQ-9 Depression Total Score: 0 04/19/20 3:25 PM EST documented as of this encounter Care Teams Toppiece Chopper Relationship Specialty Start Date End Date Rena Rothman NP PCP - General Family Medicine 12/29/22 03/09/25 Lolis Sidhu DO 73 [place] [address] PCP - General Boiling Off Winder 03/10/25 03/16/25 PcpSony Unassigned PCP - General Family Medicine 03/17/25 Kali Mchugh Community Health Worker 03/31/23 Joselin Moser [address] [address] Therapist Behavioral Health 02/13/25 Caitlyn Caceres [address] [place] [address] [phone] Psychiatrist Psychiatry 02/13/25 documented as of this encounter
--- OUTSIDE RECORDS SUMMARY | 2025-04-12 14:59 | XMS_ITS | Encounter Summary ---
Author Organization [employer] Address [address] [place] [address] 7 [place] [address] Care Team Providers Care Tutorial Laboratory Supervisor Name Role Phone Rena Rothman NP Primary Care Provider Kali Buchanan Unavailable Unavailable Lolis Sidhu DO Primary Care Provider [phone] PcpSony Unassigned Primary Care Provider U afshinailraúl Encounter Details Date Type Department Care Team (Late st Contact Info) Description 09/18/2023 Orders Only Sony [facility] MED[facility] [address] [place] [address] Rena Rothman NP Cervicalgia; Colon cancer screening; Vaginal discharge Social History Tobacco Use Types Packs/Day Years [...] the past 12 months, has t he [employer], gas, oil or water [employer] threatened to shut off services in your [...] 05/23/2025 11:15 AM EST Office Visit [facility] MEDICAL [address] [place] [address] Marion Casanova DO 73 [place] [address] 01/28/2026 11:00 AM EDT Office Visit [facility] OPTOMETRY 73 [place] [address] Carolee Andrews, OPAL 73 [place] [address] documented as of this encounter Procedures Procedure Name Priority Date/Time Associated Diagnosis Comments AMB REFERRAL TO GASTROENTEROLOGY Routine 01/23/2024 Colon cancer screening AMB REFERRAL TO ORTHOPAEDICS Routine 08/08/2023 Cervicalgia documented in this encounter Results * Referral to Gastroenterology (01/23/2024) us Rena Rothman NP OUTPATIENT REFERRAL ORDERABLES F inal Result * Referral to Orthopaedics (08/08/2023) us Rena Rothman NP OUTPATIENT REFERRAL ORDERABLES F inal Result documented in this encounter Visit Diagnoses Diagnosis Cervicalgia Colon cancer screening Special screening for malignant neoplasms, colon Vaginal discharge Leukorrhea, not specified as infective documented in this encounter Additional Health Concerns Assessment Noted Time PHQ-9 Depression Total Score: 0 04/19/20 3:25 PM EST documented as of this encounter Care Teams Tutorial Laboratory Supervisor Relationship Specialty Start Date End Date Rena Rothman NP PCP - General Family Medicine 12/29/22 03/09/25 Lolis Sidhu DO [address] [place] [address] PCP - General Commercial Sewing Instructor 03/10/25 03/16/25 Sony Jimenez Unassigned PCP - General Family Medicine 03/17/25 Kali Mchugh Community Health Worker 03/31/23 Joselin Moser [address] [facility] [address] [place], [place] [phone] Therapist Behavioral Health 02/13/25 Caitlyn Caceres [address] [place] [phone] Psychiatrist Psychiatry 02/13/25 documented as of this encounter
--- OUTSIDE RECORDS SUMMARY | 2025-04-12 14:59 | XMS_ITS | Encounter Summary ---
Author Organization [employer] Address [address] [place] [address] 7 [place] [address] Care Team Providers Care Veneer Grader Name Role Phone Rena Rothman NP Primary Care Provider Kali Buchanan Unavailable Unavailable Lolis Sidhu DO Primary Care Provider [phone] PcpSony Unassigned Primary Care Provider U navailable Reason for Visit * Reason Comments Med Refill Encounter Details Date Type Department Care Team (Late st Contact Info) Description 08/31/2023 Refill Sony [facility] [address] [place] [address] Rena Rothman NP Migraine without aura and without status migrainosus, [...] * Telephone Encounter - PEDRO Park - 09/01/2023 11:29 AM EDT duplicate documented in this encounter Plan of Treatment Upcoming Encounters Date Type Department Care Team (Late st Contact Info) Description 05/23/2025 11:15 AM EST Office Visit [facility] MEDICAL [address] [place] [address] Marion Casanova, [address] [place] [address] 01/28/2026 11:00 AM EDT Office Visit Sony [facility] OPTOMETRY 73 [place] [address] Rodrigoowen Carolee, OD [address] [place] [address] documented as of this encounter Visit Diagnoses Diagnosis Migraine without aura and without status migrainosus, not intractable documented in this encounter Additional Health Concerns Assessment Noted Time PHQ-9 Depression Total Score: 0 04/19/20 3:25 PM EST documented as of this encounter Care Teams Veneer Grader Relationship Specialty Start Date End Date Rena Rothman NP PCP - General Family Medicine 12/29/22 03/09/25 Lolis Sidhu DO [address] [place] [address] PCP - General Layout Worker 03/10/25 03/16/25 Sony Jimenez Unassigned PCP - General Family Medicine 03/17/25 Kali Mchugh Community Health Worker 03/31/23 Joselin Moser [address] [address] Therapist Behavioral Health 02/13/25 Caitlyn Caceres [address] [place] [address] [phone] Psychiatrist Psychiatry 02/13/25 documented as of this encounter
--- OUTSIDE RECORDS SUMMARY | 2025-04-12 14:59 | XMS_ITS | Encounter Summary ---
Author Organization [employer] Address [address] [place] [address] 7 [place] [address] Care Team Providers Care Bow Tacker Name Role Phone Rena Rothman NP Primary Care Provider Kali Buchanan Unavailable Unavailable Lolis Sidhu DO Primary Care Provider Pcp, Sony Unassigned Primary Care Provider U afshinailraúl Encounter Details Date Type Department Care Team (Late st Contact Info) Description 08/24/2023 Orders Only Sony [facility] [address] [place] [address] Jessica Sen FNP Pelvic pain; Uterine leiomyoma, unspecified location Social History Tobacco Use Types Packs/Day Years [...] 05/23/2025 11:15 AM EST Office Visit [facility] MEDICAL [address] [place] [address] Marion Casanova DO [address] [place] [address] 01/28/2026 11:00 AM EDT Office Visit [facility] OPTOMETRY [address] [place] [address] Carolee Andrews OD [address] [place] [address] documented as of this encounter Procedures Procedure Name Priority Date/Time Associated Diagnosis Comments AMB REFERRAL TO GYNECOLOGY Routine 08/21/2023 Pelvic pain Uterine leiomyoma, unspecified location documented in this encounter Results * Referral to Gynecology (08/21/2023) Jessica Sen [employer] OUTPATIENT REFERRAL OR DERABLES Final Result documented in this encounter Visit Diagnoses Diagnosis Pelvic pain Uterine leiomyoma, unspecified location documented in this encounter Additional Health Concerns Assessment Noted Time PHQ-9 Depression Total Score: 0 04/19/20 3:25 PM EST documented as of this encounter Care Teams Bow Tacker Relationship Specialty Start Date End Date Rena Rothman NP PCP - General Family Medicine 12/29/22 03/09/25 Lolis Sidhu DO [address] [place] [address] PCP - General Ui Programmer 03/10/25 03/16/25 Sony Jimenez Unassigned PCP - General Family Medicine 03/17/25 Kali Mchugh Community Health Worker 03/31/23 Joselin Moser [address] [phone] Therapist Behavioral Health 02/13/25 Caitlyn Caceres [address] [place] [address] Psychiatrist Psychiatry 02/13/25 documented as of this encounter
--- OUTSIDE RECORDS SUMMARY | 2025-04-12 14:59 | XMS_ITS | Encounter Summary ---
Author Organization [employer] Address [address] [place] [address] 7 [place] [address] Care Team Providers Care Treadle Cut Off Saw Operator Name Role Phone Rena Rothman NP Primary Care Provider Kali Buchanan Unavailable Unavailable Lolis Sidhu DO Primary Care Provider [phone] PcpSony Unassigned Primary Care Provider U navailable Reason for Visit * Reason Onset Date Comments Med Refill 10/11/2023 Encounter Details Date Type Department Care Team (Late st Contact Info) Description 10/11/2023 Refill Sony [facility] MED[facility] [address] [place] [address] Rena Rothman NP Cervicalgia Social History Tobacco [...] encounter Miscellaneous Notes * Telephone Encounter - SEBASTIÁN Tompkins - 10/11/2023 12:38 PM EDT [facility] Last fill Date:09/06/23 Last OV:09/06/23 Next OV:10/26/23 Last UTOX:04/19/23 CSA Date:12/30/22 DNF Date:Due documented in this encounter Plan of Treatment Upcoming Encounters Date Type Department Care Team (Late st Contact Info) Description 05/23/2025 11:15 AM EST Office Visit [facility] MEDICAL [address] [place] [address] Marion Casanova DO [address] [place] [address] 01/28/2026 11:00 AM EDT Office Visit [facility] OPTOMETRY [address] [place] [address] Carolee Andrews OD [address] [place] [address] documented as of this encounter Visit Diagnoses Diagnosis Cervicalgia documented in this encounter Additional Health Concerns Assessment Noted Time PHQ-9 Depression Total Score: 0 04/19/20 3:25 PM EST documented as of this encounter Care Teams Treadle Cut Off Saw Operator Relationship Specialty Start Date End Date Rena Rothman NP PCP - General Family Medicine 12/29/22 03/09/25 Lolis Sidhu DO [address] [place] [address] PCP - General Assistant Child Care Teacher 03/10/25 03/16/25 PcpSony Unassigned PCP - General Family Medicine 03/17/25 Kali Mchugh Community Health Worker 03/31/23 Joselin Moser [address] [address] Therapist Behavioral Health 02/13/25 Caitlyn Caceres [address] [place] [phone] Psychiatrist Psychiatry 02/13/25 documented as of this encounter
--- OUTSIDE RECORDS SUMMARY | 2025-04-12 14:59 | XMS_ITS | Clinical Summary ---
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 hypointensity anteriorly likely reflecting uterine fibroid. The paraspinal soft tissues are unremarkable. DETAILED FINDINGS BY LEVEL: T11-12: Small diffuse disc bulge partially effacing ventral CSF space, but no high-grade central stenosis or neural foraminal narrowing, as assessed on the sagittal views. T12-L1: Small diffuse broad-based disc bulge. Small anterior endplate marginal osteophytes. Mild facet spurring and small left-sided perineural cyst extending into the neural foramen. No significant canal stenosis or neural foraminal narrowing. Mild thickening of the ligamentous flavum. L1-2: No significant canal stenosis or neural foraminal narrowing. Minimal facet arthropathy. L2-3: Small diffuse broad-based disc bulge slightly eccentric to the right, with mild narrowing of the right subarticular recess but no nerve root compression. Mild bilateral neural foraminal narrowing without impingement. Mild thickening of the ligamentous flavum. No significant canal stenosis. L3-4: Small diffuse broad-based disc bulge. Mild bilateral neural foraminal narrowing without impingement. Mild thickening of the ligamentous flavum. Mild left facet arthrosis. No significant canal stenosis. L4-5: Small diffuse broad-based disc bulge. Mild bilateral facet arthropathy. Mild bilateral neural foraminal narrowing without impingement. No significant canal stenosis. L5-S1: No canal stenosis or foraminal narrowing. IMPRESSION: 1. Mild multilevel degenerative changes the lumbar spine without significant canal stenosis or neural impingement. 2. 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 I have personally reviewed the images and I agree with this report. WSN: [id number] Ordering Physician: Marion Casanova Dictated By: Moreno Jamil DO Dictated Date/Time: 02/28/25 4:55 pm Reviewed By: Clare Chung MD Signed By: Clare Chung MD Signed Date/Time: 02/28/25 5:00 pm Transcribed By: DRAGAN Transcribed Date/Time: 02/28/25 4:55 pm Procedure Note Donotuseinterpreter, Image - 02/28/2025 MRI Lumbar Spine W/O Contrast INDICATION: Reason: M54.42 M54.41 G89.29 BACK PAIN; Clinical Question(s):Left lower extremity numbness and weakness. TECHNIQUE: Multiplanar, multisequence MRI of the lumbar spine wasperformed without contrast. COMPARISON: CT lumbar spine without contrast 08/25/2019 FINDINGS: LOCALIZER: No additional findings on limited localizer images. NUMBERING: There are 6 lumbar-type nonrib-bearing vertebral bodies. Basedon correlation with prior chest radiograph, there were 11 fully formedribs. Therefore, there is a transitional thoracolumbar vertebra which is labeledas T12 (nonweightbearing). ALIGNMENT, VERTEBRAE, MARROW, AND DISCS: Normal alignment of the lumbarspine. Vertebral body heights are preserved. There is no significant marrowsignal abnormality. Multilevel disc degeneration with disc desiccation and mildloss of disc space greatest at T11-12. CONUS: The conus is normal in signal and contour, with normal level of termination at T12-L1. PARASPINAL TISSUES: There is nonspecific edema in the subcutaneous fat ofthe lower back. The partially visualized uterus appears lobular with T2 hypointensity anteriorly likely reflecting uterine fibroid. The paraspinalsoft tissues are unremarkable. DETAILED FINDINGS BY LEVEL: T11-12: Small diffuse disc bulge partially effacing ventral CSF space, butno high-grade central stenosis or neural foraminal narrowing, as assessed onthe sagittal views. T12-L1: Small diffuse broad-based disc bulge. Small anterior endplatemarginal osteophytes. Mild facet spurring and small left-sided perineural cystextending into the neural foramen. No significant canal stenosis or neuralforaminal narrowing. Mild thickening of the ligamentous flavum. L1-2: No significant canal stenosis or neural foraminal narrowing. Minimalfacet arthropathy. L2-3: Small diffuse broad-based disc bulge slightly eccentric to theright, with mild narrowing of the right subarticular recess but no nerve rootcompression. Mild bilateral neural foraminal narrowing without impingement. Mildthickening of the ligamentous flavum. No significant canal stenosis. L3-4: Small diffuse broad-based disc bulge. Mild bilateral neuralforaminal narrowing without impingement. Mild thickening of the ligamentous flavum.Mild left facet arthrosis. No significant canal stenosis. L4-5: Small diffuse broad-based disc bulge. Mild bilateral facetarthropathy. Mild bilateral neural foraminal narrowing without impingement. Nosignificant canal stenosis. L5-S1: No canal stenosis or foraminal narrowing. IMPRESSION: 1. Mild multilevel degenerative changes the lumbar spine withoutsignificant canal stenosis or neural impingement. 2. Transitional lumbosacral anatomy with nonrib-bearing T12 vertebralbody (11 normal thoracic rib bearing vertebral bodies on prior chest imaging). I have personally reviewed the images and I agree with this report. WSN: [id number] Ordering Physician: Marion Casanova Dictated By: Moreno Jamil DO Dictated Date/Time: 02/28/25 4:55 pm Reviewed By: Clare Chung MD Signed By: Clare Chung MD Signed Date/Time: 02/28/25 5:00 pm Transcribed By: DRAGAN Transcribed Date/Time: 02/28/25 4:55 pm us Marion Casanova DO IMG MRI PROCEDURES Final Resul t * [facility]?? Flex 16, Urine (02/13/2025 12:00 AM EDT) Summary Report FINAL [facility] Comment: Amphetamines, MS, Ur RFX Tramadol, MS, Ur RFX [facility] Flex 16, Ur Test Result Flag Units Drug Present Lorazepam 1115 ng/mg creat Source of lorazepam is a scheduled prescription medication. Tramadol >2841 ng/mg creat O-Desmethyltramadol 1243 ng/mg creat N-Desmethyltramadol >2841 ng/mg creat Source of tramadol is a prescription medication. O-desmethyltramadol and N-desmethyltramadol are expected metabolites of tramadol. Test Result Flag Units Ref Range Creatinine 176 mg/dL >=20 Declared Medications: Medication list was not provided. For clinical consultation, please call . Creatinine, Urine 176 >=20 mg/dL [facility] Comment:REFERENCE RANGE: Ref Range>=20 Amphetamines IA, Urine CUTOFF:3 00 ng/mL [facility] Comment:Further testing josie cated Benzodiazepines, Urine +POSITIVE+ [facility] Diazepam, Urine Not Detected ng/mg creat [facility] Desmethyldiazepam, Urine Not Detected ng/mg creat [facility] Oxazepam, Urine Not Detected ng/mg creat [facility] Temazepam, Urine Not Detected ng/mg creat [facility] Comment: Expected metabolism of benzodiazepine class drugs: Parent Drug Detected Metabolites Diazepam: Desmethyldiazepam, Temazepam, Oxazepam Chlordiazepoxide: Desmethyldiazepam, Oxazepam Clorazepate: Desmethyldiazepam, Oxazepam Halazepam: Desmethyldiazepam, Oxazepam Temazepam: Oxazepam Oxazepam: None Alprazolam, Urine Not Detected ng/mg creat [facility] Alpha-hydroxyalpra zolam, Urine Not Detected ng/mg creat [facility] Desalkylflurazepam , Urine Not Detected ng/mg creat [facility] Lorazepam, Urine 1,115 ng/mg creat [facility] Alpha-hydroxytriaz olam, Urine Not Detected ng/mg creat [facility] Clonazepam, Urine Not Detected ng/mg creat [facility] 7-aminoclonazepam, Urine Not Detected ng/mg creat [facility] Midazolam, Urine Not Detected ng/mg creat [facility] Alpha-hydroxymidaz olam, Urine Not Detected ng/mg creat [facility] Flunitrazepam, Urine Not Detected ng/mg creat [facility] Desmethylflunitraz epam, Urine Not Detected ng/mg creat [facility] Cocaine Metabolite IA, Urine Negative CUTOFF:1 50 ng/mL [facility] ETHYL ALCOHOL Enzymatic, Urine Negative CUTOFF:0 .020 g/dL [facility] CANNABINOIDS IA, Urine Negative CUTOFF:2 0 ng/mL [facility] 6-Acetylmorphine IA, Urine Negative CUTOFF:1 0 ng/mL [facility] OPIATE CLASS IA, Urine Negative CUTOFF:1 00 ng/mL [facility] OXYCODONE CLASS IA, Urine Negative CUTOFF:1 00 ng/mL [facility] Methadone IA, Urine Negative CUTOFF:1 00 ng/mL [facility] METHADONE MTB IA, Urine Negative CUTOFF:1 00 ng/mL [facility] BUPRENORPHINE, Urine Negative [facility] Buprenorphine, Urine Not Detected ng/mg creat [facility] Norbuprenorphine, Urine Not Detected ng/mg creat [facility] FENTANYL & ANALOGUES, Urine Negative [facility] Fentanyl, Urine Not Detected ng/mg creat [facility] Norfentanyl, Urine Not Detected ng/mg creat [facility] TAPENTADOL IA, Urine Negative CUTOFF:2 00 ng/mL [facility] Tramadol IA, Urine CUTOFF:2 00 ng/mL [facility] Comment:Further testing josie cated METHYLPHENIDATE IA, Urine Negative CUTOFF:1 00 ng/mL [facility] Barbiturates IA, Urine Negative CUTOFF:2 00 ng/mL [facility] Phencyclidine (PCP) IA, urine Negative CUTOFF:2 5 ng/mL [facility] Urine (Urine, Random) 02/13/2025 02/13/2025 Comment:Urine, Random Releas e Narrative [facility] 1 - 02/18/2025 4:05 PM EDT Test(s) 092324-[id number] IA was developed and its performance characteristics determined by [facility]. It has not been cleared or approved by the Food and Drug Administration. Resulting Agency Comment Performed at: 01 - [facility] [address] [place] [id number] Hospital Supervisor: Chio Fields [facility], Phone: [phone] us Marion Casanova DO LAB URINE ORDERABLES Final Res ult [facility] 1 [facility] [address] [place] [phone] * Tramadol, MS, Ur RFX (02/13/2025 12:00 AM EDT) TRAMADOL / MTBS +POSITIVE + [facility] Tramadol, Urine >2841 ng/mg creat [facility] O-Desmethyltra madol, Urine 1,243 ng/mg creat [facility] N-Desmethyltra madol, Urine >2841 ng/mg creat [facility] 02/13/2025 02/13/2025 Comment:Urine, Random Releas e Narrative Resulting Agency Comment Performed at: [facility] [employer] [address] [place] [id number] Hospital Supervisor: Chio Green, Phone: [phone] [facility] HISTORICAL/NON ORDERABLE LABS Final Result Performing Organization Address [facility] de Phone Number [facility] 1 [employer] [address] [place] [phone] * Amphetamines, MS, Ur RFX (02/13/2025 12:00 AM EDT) Amphetamines Confirmation, Urine Negative [facility] Methamphetamine, Urine Not Detected ng/mg creat [facility] Amphetamine, Urine Not Detected ng/mg creat [facility] MDMA (Ecstasy), Urine Not Detected ng/mg creat [facility] MDA (Ecstasy metabolite), Urine Not Detected ng/mg creat [facility] 02/13/2025 02/13/2025 Comment:Urine, Random Releas e Narrative Resulting Agency Comment Performed at: [facility] [employer] [address] [place] [id number] Hospital Supervisor: Chio Green, Phone: [phone] [facility] HISTORICAL/NON ORDERABLE LABS Final Result Performing Organization Address [facility]/ZIP Co de Phone Number [facility] 1 [employer] [address] [place] [phone] * TSH with Reflex to Free T4 [[id number]] (01/27/2025 12:56 PM EDT) Pathologist [facility] TSH 2.310 0.450 - 4.500 uIU/mL [facility] 1 Blood Venous blood specimen / Unknown 01/27/2025 12:56 PM EDT 01/27/2025 Narrative Resulting Agency Comment Performed at: 01 - [facility] [address] [id number] Hospital Supervisor: Daina Moore MD, Phone: [phone] us Marion Casanova DO LAB BLOOD ORDERABLES Final Res ult [facility] 1 * CBC auto differential (01/27/2025 12:56 PM EDT) Pathologist [facility] White Blood Cell Count 6.5 3.4 - 10.8 x10E3/uL [facility] 1 Red Blood Cell Count 4.81 3.77 - 5.28 x10E6/uL [facility] 1 Comment: CBC results reported were obtained after the specimen had been warmed to 37 degrees C. This may indicate the presence of Cold Agglutinins. Hemoglobin 15.2 11.1 - 15.9 g/dL [facility] 1 Hematocrit 46.3 34.0 - 46.6 % [facility] 1 MCV 96 79 - 97 fL [facility] 1 MCH 31.6 26.6 - 33.0 pg [facility] 1 MCHC 32.8 31.5 - 35.7 g/dL [facility] 1 RDW 12.7 11.7 - 15.4 % [facility] 1 Platelet Count 288 150 - 450 x10E3/uL [facility] 1 Neutrophils 57 Not Estab. % [facility] 1 Lymphocytes 32 Not Estab. % [facility] 1 Monocytes 7 Not Estab. % [facility] 1 Eosinophils 3 Not Estab. % [facility] 1 Basophils 1 Not Estab. % [facility] 1 Absolute Neutrophils 3.7 1.4 - 7.0 x10E3/uL [facility] 1 Absolute Lymphocytes 2.1 0.7 - 3.1 x10E3/uL [facility] 1 Absolute Monocytes 0.4 0.1 - 0.9 x10E3/uL [facility] 1 Absolute Eosinophils 0.2 0.0 - 0.4 x10E3/uL [facility] 1 Absolute Basophils 0.1 0.0 - 0.2 x10E3/uL [facility] 1 Immature Granulocytes 0 Not Estab. % [facility] 1 Immature Grans (Abs) 0.0 0.0 - 0.1 x10E3/uL [facility] 1 Blood Venous blood specimen / Unknown 01/27/2025 12:56 PM EDT 01/27/2025 Narrative Resulting Agency Comment Performed at: 01 - [facility] [address] [id number] Hospital Supervisor: Daina Moore MD, Phone: [phone] Marion Casanova LAB BLOOD ORDERABLES Final Res ult [facility] 1 * OCT, Optic Nerve - OU - Both Eyes (01/27/2025) Impressions Carolee Andrews, OD - 01/27/2025 Right eye (OD): borderline RNFL sectors temp; stable on change analysis Left eye (OS): Borderline RNFL sectors temp; stable on change analysis Carolee Andrews OD OPHTH TOMOGRAPHY Final Result * Automated Visual Field, Extended - OU - Both Eyes (01/27/2025) Impressions Carolee Adnrews, OD - 01/27/2025 Right eye (OD): Good fixation but slight unreliable due to 20%false neg; ring scotoma likely due to cloverleaf/high false neg; stable to previous Left eye (OS): Reliable; clean field; improved from previous Carolee Andrews OD OPHTH VISUAL FIELD Final Result * (ABNORMAL) Lipid Panel, Standard 71042 (04/24/2024 11:50 AM EST) Pathologist [facility] Cholesterol, Total 178 100 - 199 mg/dL [facility] 1 Triglycerides 90 0 - 149 mg/dL [facility] 1 HDL Cholesterol 61 >39 mg/dL [facility] 1 VLDL Cholesterol King 16 5 - 40 mg/dL [facility] 1 LDL Chol Calc ([facility]) 101(H) 0 - 99 mg/dL [facility] 1 Blood Venous blood specimen / Unknown 04/24/2024 11:50 AM EST 04/24/2024 Narrative [facility] 1 - 04/25/2024 6:05 AM EST Performed at: - [facility] [id number] Hospital Supervisor: Daina Moore MD, Phone: [phone] us Rena Rothman NP LAB BLOOD ORDERABLES Final Resul t [facility] 1 * Hepatitis C Virus (HCV) Antibody [place] to Quantitative PCR and Genotyping [id number] (09/07/2023 9:16AM EDT) Pathologist [facility] HCV Ab Non Reactive Non Reactive [facility] 1 Blood Venous blood specimen / Unknown 09/07/2023 9:16 AM EDT 09/07/2023 Narrative [facility] 1 - 09/08/2023 6:05 AM EDT Performed at: [facility] [id number] Hospital Supervisor: Daina Moore MD, Phone: [phone] us Rena Rothman NP LAB BLOOD ORDERABLES Final Resul t [facility] 1 * Hepatitis B Surface Antibody, Quantitative (09/07/2023 9:16 AM EDT) Hepatitis B Surf Ab Quant 526.2 Immunity>9. 9 mIU/mL [facility] 1 Comment: Status of Immunity Anti-HBs Level Inconsistent with Immunity 0.0 - 9.9 Consistent with Immunity >9.9 Blood Venous blood specimen / Unknown 09/07/2023 9:16 AM EDT 09/07/2023 Narrative [facility] 1 - 09/08/2023 6:05 AM EDT Performed at: - [facility] [id number] Hospital Supervisor: Daina Moore MD, Phone: [phone] Rena Rothman NP LAB BLOOD ORDERABLES Final Resul t Performing Organization Address [facility] de Phone Number [facility] 1 * HIV p24 Antigen/Antibody With Reflex to Confirmation (09/07/2023 9:16 AM EDT) HIV Ab/p24 Ag Screen Non Reactive Non Reactive [facility] 1 Comment: HIV Negative HIV-1/HIV-2 antibodies and HIV-1 p24 antigen were NOT detected. There is no laboratory evidence of HIV infection. Blood Venous blood specimen / Unknown 09/07/2023 9:16 AM EDT 09/07/2023 Narrative [facility] 1 - 09/08/2023 6:05 AM EDT Performed at: - [facility] [id number] Hospital Supervisor: Daina Moore MD, Phone: [phone] Rena Rothman NP LAB BLOOD ORDERABLES Final Resul t Performing Organization Address [facility] de Phone Number [facility] 1 * BI Mammogram Screening Tomosynthesis Bilateral (07/15/2023 1:28 PM EST) Anatomical Region Laterality Modality Breast Bilateral Mammography 07/15/2023 1:28 PM EST Narrative 07/26/2023 2:58 PM EST PROCEDURE: MM Digital Mammo Screening INDICATION: Screening for breast cancer. No known palpable abnormalities. COMPARISON: 04/05/2021 TECHNIQUE:: Full-field digital CC and MLO 3D tomosynthesis images of both breasts were acquired with implants displaced. In addition, 2-D MLO and CC views were obtained. Computer-aided detection (CAD) was utilized in the interpretation of this study DENSITY: The breast tissue contains scattered areas of fibroglandular density. FINDINGS: No suspicious masses, suspicious calcifications, or areas of architectural distortion are seen to suggest malignancy. There are bilateral subpectoral saline implants with no evidence of complication. IMPRESSION: No mammographic evidence of malignancy. RECOMMENDATION: Routine mammographic screening BI-RADS: 1 (Negative) Lay letter mailed to patient WSN: [id number] Ordering Physician: Rena Rothman Dictated By: Nikolai Asif MD Dictated Date/Time: 07/26/23 2:55 pm Reviewed By: Nikolai Asif MD Signed By: Nikolai Asif MD Signed Date/Time: 07/26/23 2:55 pm Transcribed By: CSB Medical Accountant Date/Time: 07/26/23 2:52 pm Birads: Procedure Note Donotuseinterpreter, Image - 07/26/2023 PROCEDURE: MM Digital Mammo Screening INDICATION: Screening for breast cancer. No known palpableabnormalities. COMPARISON: 04/05/2021 TECHNIQUE:: Full-field digital CC and MLO 3D tomosynthesis images ofboth breasts were acquired with implants displaced. In addition, 2-D MLO and CCviews were obtained. Computer-aided detection (CAD) was utilized in theinterpretation of this study DENSITY: The breast tissue contains scattered areas of fibroglandulardensity. FINDINGS: No suspicious masses, suspicious calcifications, or areas of architectural distortion are seen to suggest malignancy. There arebilateral subpectoral saline implants with no evidence of complication. IMPRESSION: No mammographic evidence of malignancy. RECOMMENDATION: Routine mammographic screening BI-RADS: 1 (Negative) Lay letter mailed to patient WSN: [id number] Ordering Physician: Rena Rothman Dictated By: Nikolai Asif MD Dictated Date/Time: 07/26/23 2:55 pm Reviewed By: Nikolai Asif MD Signed By: Nikolai Asif MD Signed Date/Time: 07/26/23 2:55 pm Transcribed By: CSB Medical Accountant Date/Time: 07/26/23 2:52 pm Birads: Rena Rothman NP IM BI PROCEDURES Final Result * PAP, LB with CT/GC and HPV (03/22/2023 11:39 AM EDT) PAP, LB WITH CT/GC AND HPV Patient Name: HALLE BLAIR [facility] Comment: Patient : 1970 (Age: 52) Lab Collection Date: 03/22/2023 Accession Date: 03/23/2023 Sign Out Date: 03/29/2023 Tissue Source: 1: THINPREP WASTE CHOPPER PAP TEST, CERVICAL: Final Diagnosis: NEGATIVE FOR INTRAEPITHELIAL LESION OR MALIGNANCY. Satisfactory for evaluation. Endocervical/transformation zone present. Procedures/Addenda: Human Papilloma Virus, High-Risk (Any Dx) Status: Signed Out Interpretation: Negative Methodology: [employer] Aptima HPV mRNA assay (Nucleic Acid Amplification Test, NAAT). Clinical History: Date of Last Menstrual Period: 07-14-22 Menstrual History: Menopause Contraceptive History: not available Ancillary Testing: Chlamydia/GC Case imaged by the [employer]Show TimePreRapportive Imaging System with manual rescreening or review. Performed at [facility] department of Cytology, [facility] Clinical History (other): z12.4, Phone #: [phone], On-Call Pathologist: [id number] Testing performed or reported by [facility], a Service of [facility], [address] [place] [phone] Kevin Serrano MD, Daycare Manager IA# [id number] 03/22/2023 11:3 9 AM EDT 03/23/2023 1:06 AM EDT Jessica Sen [facility] CYTOLOGY ORDERABLE S Final Result [facility] [address] [place] [phone] from Last 3 Months or Most Recently Relevant to Health Maintenance Insurance 6-[address] [place] [address] [facility] [address] [address] GENERIC T[address] [place] [address] [facility] Care Teams Antique Collector Relationship Specialty Start Date End Date PcpSony Unassigned PCP - General Family Medicine 03/17/25 Kali Mchugh Community Health Worker 03/31/23 Joselin Moser [address] [place], [place] [phone] Therapist Behavioral Health 02/13/25 Caitlyn Caceres [address] [place] [phone] Psychiatrist Psychiatry 02/13/25
--- OUTSIDE RECORDS SUMMARY | 2025-04-12 14:59 | XMS_ITS | Encounter Summary ---
Author Organization [facility] Address [address] [place] [address] [address] [place] [address] Care Team Providers Care Grain Processor Name Role Phone Rena Rothman NP Primary Care Provider Kali Buchanan Unavailable Unavailable Lolis Sidhu DO Primary Care Provider [phone] PcpSony Unassigned Primary Care Provider U navailable Reason for Visit * Reason Onset Date Comments Med Refill 11/10/2023 Encounter Details Date Type Department Care Team (Late st Contact Info) Description 11/10/2023 Refill Sony [facility] [address] [place] [phone] Rena Rothman NP Cervicalgia Social History Tobacco [...] * Telephone Encounter - PEDRO [place] - 11/10/2023 1:50 PM EDT Sent yesterday. * Telephone Encounter - SEBASTIÁN Tompkins - 11/10/2023 11:14 AM EDT [facility] Last fill Date:10/11/23 Last OV:09/06/23 Next OV:11/15/23 Last UTOX:04/19/23 CSA Date:12/30/22 DNF Date:Due Today documented in this encounter Plan of Treatment Upcoming Encounters Date Type Department Care Team (Late st Contact Info) Description 05/23/2025 11:15 AM EST Office Visit [facility] MEDICAL [address] [place] [address] Marion Casanova DO [address] [place] [address] 01/28/2026 11:00 AM EDT Office Visit [facility] OPTOMETRY [address] [place] [address] Carolee Andrews OD [address] [place] [address] documented as of this encounter Visit Diagnoses Diagnosis Cervicalgia documented in this encounter Additional Health Concerns Assessment Noted Time PHQ-9 Depression Total Score: 0 04/19/20 3:25 PM EST documented as of this encounter Care Teams Grain Processor Relationship Specialty Start Date End Date Rena Rothman NP PCP - General Family Medicine 12/29/22 03/09/25 Lolis Sidhu DO [address] [place] [phone] PCP - General Spike Machine Feeder 03/10/25 03/16/25 Sony Jimenez Unassigned PCP - General Family Medicine 03/17/25 Kali Mchugh Community Health Worker 03/31/23 Joselin Moser [address] [facility] [place] [phone] Therapist Behavioral Health 02/13/25 Caitlyn Caceres [address] [place] [address] [phone] Psychiatrist Psychiatry 02/13/25 documented as of this encounter
--- OUTSIDE RECORDS SUMMARY | 2025-04-12 14:59 | XMS_ITS | Encounter Summary ---
Author Organization [employer] Address [address] [place] [address] 7 [place] [address] Care Team Providers Care Cello Teacher Name Role Phone Rena Rothman NP Primary Care Provider Kali Buchanan Unavailable Unavailable Lolis Sidhu DO Primary Care Provider [phone] PcpSony Unassigned Primary Care Provider U navailable Reason for Visit * Reason Comments Med Refill Encounter Details Date Type Department Care Team (Late st Contact Info) Description 06/01/2023 Refill Sony [facility] [address] [place] [address] Rena Rothman NP Cervicalgia Social History Tobacco [...] the past 12 months, has t he [place], gas, oil or water [employer] threatened to shut off services in your [...] encounter Miscellaneous Notes * Telephone Encounter - Gina Restrepo RN - 06/06/2023 8:32 AM EST Called and spoke to patient who states rash is very itchy and raised. Received shingles vaccine 4 days ago, 06/02/23. Scheduled appt with [facility] for today, 06/06/23. Discussed reasons to seek emergency care for systemic allergic reaction. documented in this encounter Plan of Treatment Upcoming Encounters Date Type Department Care Team (Lan cueto Contact Info) Description 05/23/2025 11:15 AM EST Office Visit [facility] [address] [place] [address] Marion Casanova DO [address] [place] [address] 01/28/2026 11:00 AM EDT Office Visit [facility] [address] [place] [address] Carolee Andrews OD [address] [place] [address] documented as of this encounter Visit Diagnoses Diagnosis Cervicalgia documented in this encounter Additional Health Concerns Assessment Noted Time PHQ-9 Depression Total Score: 0 04/19/20 23 3:25 PM EST documented as of this encounter Care Teams Cello Teacher Relationship Specialty Start Date End Date Rena Rothman NP PCP - General Family Medicine 12/29/22 03/09/25 Lolis Sidhu DO [address] [place] [address] PCP - General Return Clerk 03/10/25 03/16/25 Sony Jimenez Unassigned PCP - General Family Medicine 03/17/25 Kali Mchugh Community Health Worker 03/31/23 Joselin Moser [address] [phone] Therapist Behavioral Health 02/13/25 Caitlyn Caceres [address] [place] [phone] Psychiatrist Psychiatry 02/13/25 documented as of this encounter
--- OUTSIDE RECORDS SUMMARY | 2025-04-12 14:59 | XMS_ITS | Encounter Summary ---
Author Organization [employer] Address [address] [place] [address] 7 [place] [address] Care Team Providers Care Insert Operator Name Role Phone Rena Rothman NP Primary Care Provider Kali Buchanan Unavailable Unavailable Lolis Sidhu DO Primary Care Provider [phone] PcpSony Unassigned Primary Care Provider U navailable Reason for Visit * Reason Comments Med Refill Encounter Details Date Type Department Care Team (Late st Contact Info) Description 01/05/2024 Refill Sony [facility] [address] [place] [address] Rena Rothman NP Cervicalgia Social History Tobacco [...] the past 12 months, has t he [employer], gas, oil or water [employer] threatened to shut off services in your [...] * Telephone Encounter - PEDRO Park - 01/05/2024 4:39 PM EDT Rx sent 1 week ago by pcp, too soon. documented in this encounter Plan of Treatment Upcoming Encounters Date Type Department Care Team (Late st Contact Info) Description 05/23/2025 11:15 AM EST Office Visit [facility] [address] [place] [address] Marion Casanova DO [address] [place] [address] 01/28/2026 11:00 AM EDT Office Visit [facility] 73 [place] [address] Carolee Andrews OD [address] [place] [address] documented as of this encounter Visit Diagnoses Diagnosis Cervicalgia documented in this encounter Additional Health Concerns Assessment Noted Time PHQ-9 Depression Total Score: 0 04/19/20 3:25 PM EST documented as of this encounter Care Teams Insert Operator Relationship Specialty Start Date End Date Rena Rothman NP PCP - General Family Medicine 12/29/22 03/09/25 Lolis Sidhu DO [address] [place] [address] PCP - General Ems Driver 03/10/25 03/16/25 PcpSony Unassigned PCP - General Family Medicine 03/17/25 Kali Mchugh Community Health Worker 03/31/23 Joselin Moser [address] [phone] Therapist Behavioral Health 02/13/25 Caitlyn Caceres [address] [place] [phone] Psychiatrist Psychiatry 02/13/25 documented as of this encounter
--- OUTSIDE RECORDS SUMMARY | 2025-04-12 14:59 | XMS_ITS | Encounter Summary ---
Author Organization [employer] Address [address] [place] [address] 7 [place] [address] Care Team Providers Care 3D Animator Name Role Phone Rena Rothman NP Primary Care Provider Kali Buchanan Unavailable Unavailable Lolis Sidhu DO Primary Care Provider [phone] PcpSony Unassigned Primary Care Provider U navailable Reason for Visit * Reason Comments Med Refill Encounter Details Date Type Department Care Team (Late st Contact Info) Description 08/08/2023 Refill Sony [facility] [address] [place] [address] Hilary Diaz, PEDRO Cervicalgia Social History Tobacco [...] t he electric, gas, oil or water [employer] threatened to shut off services in your [...] * Telephone Encounter - [place] - 08/11/2023 8:53 AM EDT duplicate documented in this encounter Plan of Treatment Upcoming Encounters Date Type Department Care Team (Late st Contact Info) Description 05/23/2025 11:15 AM EST Office Visit Sony [facility] [address] [place] [address] Marion Casanova DO [address] [place] [address] 01/28/2026 11:00 AM EDT Office Visit Sony [facility] OPT[facility] [address] [place] [address] Carolee Andrews, OPAL [address] [place] [address] documented as of this encounter Visit Diagnoses Diagnosis Cervicalgia documented in this encounter Additional Health Concerns Assessment Noted Time PHQ-9 Depression Total Score: 0 04/19/20 3:25 PM EST documented as of this encounter Care Teams 3D Animator Relationship Specialty Start Date End Date eRna Rothman NP PCP - General Family Medicine 12/29/22 03/09/25 Lolis Sidhu DO [address] [place] [address] PCP - General Program Coordinator Executive Education 03/10/25 03/16/25 PcpSony Unassigned PCP - General Family Medicine 03/17/25 Kali Mchugh Community Health Worker 03/31/23 Joselin Moser [address] [facility] [address] [place] [address] Therapist Behavioral Health 02/13/25 Caitlyn Caceres [address] [place] [address] [phone] Psychiatrist Psychiatry 02/13/25 documented as of this encounter
--- OUTSIDE RECORDS SUMMARY | 2025-04-12 14:59 | XMS_ITS | Encounter Summary ---
Author Organization [employer] Address [address] [place] [address] 7 [place] [address] Care Team Providers Care Computer Lab Assistant Name Role Phone Rena Rothman NP Primary Care Provider Kali Buchanan Unavailable Unavailable Lolis Sidhu DO Primary Care Provider PcpSony Unassigned Primary Care Provider U navailable Reason for Visit * Reason Onset Date Comments Med Refill 12/22/2023 Encounter Details Date Type Department Care Team (Late st Contact Info) Description 12/22/2023 Refill Sony [facility] [address] [place] [id number] Rena Rothman NP Cervicalgia Social History Tobacco [...] Office Visit Sony [facility] [address] [place] [address] Marion Casanova DO [address] [place] [address] 01/28/2026 11:00 AM EDT Office Visit [facility] [address] [place] [address] Carolee Andrews, OD [address] [place] [address] documented as of this encounter Visit Diagnoses Diagnosis Cervicalgia documented in this encounter Additional Health Concerns Assessment Noted Time PHQ-9 Depression Total Score: 0 04/19/20 3:25 PM EST documented as of this encounter Care Teams Computer Lab Assistant Relationship Specialty Start Date End Date Rena Rothman NP PCP - General Family Medicine 12/29/22 03/09/25 Lolis Sidhu DO [address] [place] [address] PCP - General Entertainment Manager 03/10/25 03/16/25 Sony Jimenez Unassigned PCP - General Family Medicine 03/17/25 Kali Mchugh Community Health Worker 03/31/23 Joselin Moser [address] [facility] [address] [place] [address] [phone] Therapist Behavioral Health 02/13/25 Caitlyn Caceres [address] [place] [phone] Psychiatrist Psychiatry 02/13/25 documented as of this encounter
--- OUTSIDE RECORDS SUMMARY | 2025-04-12 14:59 | XMS_ITS | Encounter Summary ---
Author Organization [employer] Address [address] [place] [address] 7 [place] [address] Care Team Providers Care Vault Custodian Name Role Phone Rena Rothman NP Primary Care Provider Kali Buchanan Unavailable Unavailable Lolis Sidhu DO Primary Care Provider [phone] PcpSony Unassigned Primary Care Provider U navailable Reason for Visit * Reason Comments Med Refill Encounter Details Date Type Department Care Team (Late st Contact Info) Description 12/05/2023 Refill Sony [facility] [address] [place] [address] Rena Rothman NP Migraine without aura and [...] 05/23/2025 11:15 AM EST Office Visit Sony [facility] [address] [place] [address] Marion Casanova DO [address] [place] [address] 01/28/2026 11:00 AM EDT Office Visit Sony [facility] [address] [place] [address] Carolee Andrews, OPAL [address] [place] [address] documented as of this encounter Visit Diagnoses Diagnosis Migraine without aura and without status migrainosus, not intractable documented in this encounter Additional Health Concerns Assessment Noted Time PHQ-9 Depression Total Score: 0 04/19/20 3:25 PM EST documented as of this encounter Care Teams Vault Custodian Relationship Specialty Start Date End Date Rena Rothman NP PCP - General Family Medicine 12/29/22 03/09/25 Lolis iSdhu DO [address] [place] [address] PCP - General Rail Detector Car Operator 03/10/25 03/16/25 Sony Jimenez Unassigned PCP - General Family Medicine 03/17/25 Kali Mchugh Community Health Worker 03/31/23 Joselin Moser [address] [facility] [address] [place], [place] [phone] Therapist Behavioral Health 02/13/25 Caitlyn Caceres [address] [place] [phone] Psychiatrist Psychiatry 02/13/25 documented as of this encounter
--- OUTSIDE RECORDS SUMMARY | 2025-04-12 14:59 | XMS_ITS | Encounter Summary ---
Author Organization [employer] Address [address] [place] [address] 7 [place] [address] Care Team Providers Care Blanket Binder Name Role Phone Rena Rothman NP Primary Care Provider Kali Buchanan Unavailable Unavailable Lolis Sidhu DO Primary Care Provider [phone] PcpSony Unassigned Primary Care Provider U navailable Reason for Visit * Reason Comments Med Refill Encounter Details Date Type Department Care Team (Late st Contact Info) Description 12/06/2023 Refill Sony [facility] [address] [place] [address] Hilary Diaz, PEDRO Cervicalgia Social History Tobacco [...] t he electric, gas, oil or water [employer] threatened to shut off services in your [...] encounter Miscellaneous Notes * Telephone Encounter - Bj Tellez CMA - 12/06/2023 9:58 AM EDT Duplicate request documented in this encounter Plan of Treatment Upcoming Encounters Date Type Department Care Team (Late st Contact Info) Description 05/23/2025 11:15 AM EST Office Visit [facility] [address] [place] [address] Marion Casanova DO [address] [place] [address] 01/28/2026 11:00 AM EDT Office Visit [facility] OPTOMETRY [address] [place] [address] Carolee Andrews OD [address] [place] [address] documented as of this encounter Visit Diagnoses Diagnosis Cervicalgia documented in this encounter Additional Health Concerns Assessment Noted Time PHQ-9 Depression Total Score: 0 04/19/20 23 3:25 PM EST documented as of this encounter Care Teams Blanket Binder Relationship Specialty Start Date End Date Rena Rothman NP PCP - General Family Medicine 12/29/22 03/09/25 Lolis Sidhu DO [address] [place] [address] PCP - General Workers Compensation Claims Analyst 03/10/25 03/16/25 Sony Jimenez Unassigned PCP - General Family Medicine 03/17/25 Kali Mchugh Community Health Worker 03/31/23 Joselin Moser [address] [phone] Therapist Behavioral Health 02/13/25 Caitlyn Caceres [address] [place] [phone] Psychiatrist Psychiatry 02/13/25 documented as of this encounter
== END 2025-04-12 14:56 | disposition home or self-care (01) ==
LOC: HO.MRI 14:55
PROVIDERS: PCP Family Medicine; Visit Provider Psychiatry & Neurology Neurology
DX: G20.A1 Parkinson's disease without dyskinesia, without mention of fluctuations (principal)
CPT/HCPCS: 70551

== ENCOUNTER → 2025-04-12 15:09 | Outpatient (BNV) | payer MEDICAID, SELFPAY | PROVIDERS: PCP Family Medicine; Visit Provider Radiology Vascular & Interventional Radiology | DX: G20.C Parkinsonism, unspecified (principal) | CPT/HCPCS: 70551 ==

== ENCOUNTER 2025-04-28 09:05 | Outpatient (AMB) | payer MEDICAID, SELFPAY ==
--- NOTE | 2025-04-28 09:27 | A.OFFVIS_ITS ---
Intake Visit Reasons: MRI Review Allergies minocycline Adverse Reaction (Verified 06/17/22 20:17) Difficulty Breathing Penicillins Adverse Reaction (Verified 06/17/22 20:13) Difficulty Breathing tetracycline Adverse Reaction (Verified 06/17/22 20:14) Difficulty Breathing HPI Comments Details: 54 years old woman with longstanding history of depression at this time being treated with combination of SSRI and antipsychotic medicines, i.e., Abilify. She was here with complaints of or observation of facial droop. On examination, she has moderate generalized bradykinesia with decreased facial expression and blinking limiting her facial expressive features, instead of droop. This could be related to exposure to antipsychotics but she stated that some of these features were present even before her admission at [facility] in 2022. She is presenting for follow-up on brain MRI and evaluation of slowness. She has been experiencing slowness, which has been noticed by her children, and she also reports increased difficulty getting out of bed. These symptoms may have been present for a couple of years. A recent brain MRI was normal. The patient has a psychiatric history of PTSD with complex psychological symptoms and anxiety. She is currently taking Abilify. [facility] Medical History (Updated 04/28/25 @ 09:32 by Wendy Duff MD) Migraine Facial droop Neck pain, acute Low back pain Social History Household Members: Family Housing: House Do you presently have visiting nurse or other home services: No Alcohol intake: current Alcohol intake frequency: holidays/special occasions only Patient Tobacco Use Status: Never used Tobacco e-Cigarette/Vaping Use: Never Used Second Hand Smoke Exposure: No service: No Sexual orientation: Straight/Heterosexual Review of Systems Narrative - Neurological: Reports slowness and difficulty getting out of bed. - Psychiatric: Reports a history of PTSD and anxiety. Physical Exam Neuro Other: Mental Status: Alert and oriented to person, place, and time. Normal attention. Normal spontaneous speech, fluency, and comprehension. Cranial Nerves: CN II: Visual issa full to confrontation, visual acuity intact. CN III, IV, : Pupils equal, round, reactive to light and accommodation. Extraocular movements are normal. CN V: Facial sensation is normal. CN VII: Facial movements symmetrical. CN VIII: Hearing intact to bedside conversation is normal. CN IX, X: Palate elevates symmetrically. CN XI: Shoulder shrug and head turn symmetrical. CN XII: Tongue midline without atrophy or fasciculations. Extrapyramidal: Full facial expressions and blinking. No rigidity. Movements are appropriate with no tremor or abnormality. Speech: Normal; no dysarthria or tremor. Results Reviewed Results Reviewed: [address] [address] Magnetic Resonance Report Signed Patient: Halle Blair MR#: [id number] : 1970 Acct:[id number] Age/Sex: 54 / F ADM Date: 04/12/25 Loc: HO.MRI Attending Dr: Wendy Duff MD Ordering Physician: Wendy Duff MD Date of Service: 04/12/25 Procedure(s): MR head/brain wo con Accession Number(s): [id number] cc: Wendy Duff MD; Marion Casanova DO Reason for Exam: G20 - Parkinson's disease CLINICAL HISTORY: G20 - Parkinsons disease MR Brain without gadolinium Comparison: None provided Findings: No restricted diffusion. No intra-axial mass or hemorrhage. No midline shift. No hydrocephalus. Vascular flow voids are intact. The orbits are normal. The sinuses and mastoid air cells are clear. No focal bone lesion. IMPRESSION: Normal brain MRI. Assessment & Plan Assessment & Plan (1) Parkinsonism: Comment: MRI brain WO at [facility] in 2024: Minimal MVD Code(s): G20 - Parkinson's disease Category: Medical Qualifiers: Parkinsonism type: unspecified Qualified Code(s): G20 - Parkinson's disease Plan Impression: a: Mild Parkinson disease b: PTSD with complex psychological symptoms Rec: Carbidopa/levodopa 25/100, 8am, 12noon, and 4pm I reviewed the patient's brain MRI results, which were normal. Based on my clinical observation of her slowness, I have diagnosed her with early-onset Parkinson's disease. I explained that I am prescribing a medication to help with this symptom. I instructed her on the dosing schedule of one pill three times daily, starting upon waking, with doses approximately four hours apart. I discussed the potential side effect of nausea, noting that it typically subsides quickly. Medications: New carbidopa-levodopa 25-100 mg (Sinemet) 1 tab PO TID 270 tabs 1RF Coding Level of Care Code Est Pt Level 4 (51752) Diagnoses Parkinsonism, unspecified Parkinsonism type G20 Parkinsonism type: unspecified
== END 2025-04-28 09:36 | disposition home or self-care (01) ==
LOC: HO.HSM 09:05
PROVIDERS: Visit Provider Psychiatry & Neurology Neurology
DX: G20.C Parkinsonism, unspecified (principal)
CPT/HCPCS: 99214

== ENCOUNTER → 2025-04-28 09:05 | Outpatient (BNVA) | payer MEDICAID, SELFPAY | PROVIDERS: Visit Provider Psychiatry & Neurology Neurology | DX: G20.C Parkinsonism, unspecified (principal); F43.10 Post-traumatic stress disorder, unspecified | CPT/HCPCS: 99212 ==